=== PATIENT | male | born 1955 | race Caucasian/White ===

== ENCOUNTER 2016-08-30 12:07 | Inpatient (IN) | payer MEDICAID, OTHER ==
[2016-08-30] VITALS (17 sets, daily range): BP systolic 96–128; BP diastolic 69–93; PULSE 96–164; RESP 15–26; O2SAT 93–97
[~2016-08-30] VITALS: Ht 180.3 cm; Wt 86.0 kg
--- NOTE | 2016-08-30 12:37 | ED.REPORT ---
HPI-Chest Pain 40 and Over Date of Service Aug 30, 2016 ED Provider: Raj Meneses MD Pt is a 61 year old male presenting to the ED from complaining of 3 or 4 days of SOB. Pt states that he has not been feeling well for the past few days. Denies chest pain, lightheadedness, diaphoresis, shakiness. EKG at today shows a-fib with RVR. Pt reports that he stopped drinking EtOH 2 weeks ago, but usually drinks 5 beers per day. He states that he stopped because he was not feeling good. Pt has been mostly laying down for the past week. Denies hx of bleeding, ulcers, HTN, liver disease. Nursing Notes Stated Complaint: SOB Chief Complaint: SOB Nursing Notes Reviewed: Yes Allergies: Coded Allergies: No Known Allergies (Unverified , 08/30/16) No Active Prescriptions or Reported Meds General Time Seen by MD: 12:36 Chief Complaint Shortness of breath Hx Obtained From: Patient, Spouse Arrived By: Walk-in Sudden in Onset?: No Onset Occurred: 3 days ago Symptom Duration: Since onset Severity: Current: No pain currently Severity: Maximum: No pain Recent Healthcare: No recent doctor visit, No recent hospitalization Similar Sx Previous: No Past Medical History Past Medical History denies hx of HTN, liver problems or jaundice Pt has not been to see a doctor since he was 20 Past Surgical History denies Smoking History Unknown if Ever Smoker Social History Just quit drinking 2 weeks ago Alcohol Use: In recovery Ambulatory Status Independent Review of Systems Constitutional: Reports: Malaise, Denies: Fever Respiratory: Reports: Shortness of breath Cardiovascular: Denies: Chest pain Skin: Denies Diaphoresis Neurologic: Denies: Lightheaded, Shaking Complete sys rev & neg: except as marked. Physical Exam Initial Vital Signs Vital Signs (First) Date Time Temp Pulse Resp B/P Pulse Ox O2 Delivery O2 Flow Rate FiO2 08/30/16 12:24 164 15 128/69 Room Air 08/30/16 13:28 36.6 08/30/16 14:24 4 08/30/16 15:05 93 Initial VS: Reviewed Head / Eyes: Atraumatic, Normocephalic, PERRL ENT: Mucous membranes moist, Conjunctiva normal, No scleral icterus Neck: Supple, Non-tender, Full range of motion Skin: Warm, Dry, No cyanosis Neurologic: Alert, Oriented, Nonfocal Psychiatric: Mood/affect normal, Behavior normal, Normal thought content General/Constitutional: Awake, Alert No tremor Respiratory / Chest: Breath sounds NL, Breath sounds = bilat, No respiratory distress, No rales, No rhonchi, No wheezing, No stridor, No chest tenderness Cardiovascular: No gallop, No murmurs, No rubs Heart Rate / Rhythm: Positive: Irreg irregular rhythm, Tachycardia Abdomen: Atraumatic, No guarding, No rebound, BS normoactive, No distention Organomegaly / Mass / Hernia: Positive: Hepatomegaly, Negative: Pulsatile mass Telangiectasia anterior abdominal wall. Lower Extremity / Pelvis / MS: Full range of motion, Neurologic intact, Vascular intact Engorged vericose veins in both legs Skin: Color NL Neurologic: Oriented X3, Speech NL, No motor deficits Interpretation & Diagnostics Lab Results Interpretation Result Diagram: 08/30/16 1242 08/30/16 1242 Test 08/30/16 12:42 White Blood Count 10.0th/mm3 (3.8-10.1) Red Blood Count 5.39mil/mm3 (4.40-5.80) Hemoglobin 16.4g/dL (13.8-17.2) Hematocrit 48.6% (41.0-50.0) Mean Corpuscular Volume 90.2fL (81-100) Mean Corpuscular Hemoglobin 30.4pg (27.0-35.0) Mean Corpuscular Hemoglobin Concent 33.7% (32.0-37.0) Red Cell Distribution Width 14.2% (12.3-15.4) Platelet Count 86bil/L (150-400) Neutrophils (%) (Auto) 76.4% (40-74) Lymphocytes (%) (Auto) 9.8% (14-46) Monocytes (%) (Auto) 13.3% (4-12) Eosinophils (%) (Auto) 0.1% (0-5) Basophils (%) (Auto) 0.1% (0-3) Hematology Comments Prothrombin Time 18.7sec (8.1-12.5) Prothromb Time International Ratio 1.73ratio Activated Partial Thromboplast Time 33.2sec (22.8-33.0) D-Dimer 13.9mg/L (<0.50) Hold Urine Received (Received) Sodium Level 135mEq/L (134-144) Potassium Level 5.0mEq/L (3.5-5.2) Chloride Level 98mEq/L (97-108) Carbon Dioxide Level 16mmol/L (18-29) Blood Urea Nitrogen 71mg/dL (8-27) Creatinine 2.02mg/dL (0.76-1.27) Estimat Glomerular Filtration Rate 36mL/min (>59) Glucose Level 104mg/dL (60-99) Calcium Level 9.0mg/dL (8.5-10.1) Magnesium Level 2.5mg/dL (1.6-2.6) Total Bilirubin 2.1mg/dL (0.0-1.2) Aspartate Amino Transf (AST/SGOT) 482U/L (0-50) Alanine Aminotransferase (ALT/SGPT) 593U/L (0-44) Alkaline Phosphatase 165U/L (25-160) Troponin T 0.075ug/L (0.0-0.011) Total Protein 6.0g/dL (6.4-8.4) Albumin 3.4g/dL (3.4-5.0) Thyroid Stimulating Hormone (TSH) 4.100uIU/mL (0.450-4.500) Hold Queen Top Tube Received (Received) Alcohols < 10mg/dL (0-10) ECG Interpretation ECG Interpretation: Regular narrow complex tachycardia afib vs SVT? Rapid ventricular response. No acute ST segment changes. Time: 12:32 Interpreted by: ED physician X-Ray Chest Interpretation Chest Xray Interpretation: IMPRESSION: No acute cardiopulmonary disease. Dictated by: Saravanan Hahn M.D. on 08/30/2016 at 12:56 View: Portable, 1 view Interpretation / Wet Read by: Interpret - Radiologist CT Chest Interpretation IMPRESSION: 1. Bilateral nonocclusive subsegmental pulmonary emboli. 2. Small pleural effusions, cardiomegaly, and partially characterized hepatosplenic ascites. The findings suggest congestive failure and fluid overload. These findings were discussed with Dr. Meneses at 12:10 PM on 08/30/16. Dictated by: Lucia Gaviria M.D. on 08/30/2016 at 14:03 Study type: CT pulm angiogram Interpretation / Wet Read by: Interpret - Radiologist US Focused Biliary IMPRESSION: 1. Liver demonstrates nodular contour and coarse echotexture consistent with chronic liver disease and possible cirrhosis. Recommend clinical correlation. 2. No gallstones or evidence for acute cholecystitis. 3. Small amount of free fluid around liver, spleen, and wheezing the gallbladder fossa. This finding is likely related to liver disease. Dictated by: Esthela Lamas M.D. on 08/30/2016 at 16:06 Exam Performed by: Radiologist Re-Eval/Medical Decision Med Decision/Clinical Course Pt given Adenosine 6mg and then Cardizem 20 mg IV 5 mg per hour drip ordered. 61-year-old male presenting with atrial fibrillation rapid ventricular response. Not having chest pain, initially treated with IV Cardizem, had some improvement in her rate however he was still over persistently and frequently over 120. Cardizem drip was titrated up, we gave a small dose of digoxin intravenously after discussion with the medicine service. He had a markedly elevated d-dimer which was followed up with imaging demonstrating pulmonary embolism. He was noted to have renal failure and elevated AST ALT and bilirubin and alkaline phosphatase. Examination and history were not consistent with cholecystitis. Ultrasound was performed, no gallstones or CBD dialation. Heparin drip started and IV fluids given cautiously. Admit to hospitalist service. Time of Eval: 12:49 Patient Status: Condition improved Re-Evaluation/Progress Note: Pt given Adenosine 6mg and repeat EKG performed. Pt clearly in afib. Time of Eval: 13:20 Patient Status: Condition improved Re-Evaluation/Progress Note: Discussed lab results. Heart rate currently at 126. Pt states that he stopped drinking alcohol because he was feeling sick. He denies hx of liver disease or jaundice. Time of Eval: 14:13 Patient Status: Condition improved Re-Evaluation/Progress Note: Discussed CT results and plan for admission. Pt understands and agrees with plan. Consultation : Referral / Consult Name: Bobby Levi MD Consulted With: Hospitalist Call Returned at: 14:19 Truck Shop Mechanic: Will see patient, Agrees with plan, Accepts admit Counseled Regarding: Diagnosis, Lab results, Need for follow-up, When/why to return to ED Discharge & Departure Primary Impression: Pulmonary emboli Pulmonary embolism type: other Chronicity: acute Acute cor pulmonale presence: without acute cor pulmonale Qualified Code: I26.99 - Other pulmonary embolism without acute cor pulmonale Additional Impressions: Atrial fibrillation with RVR Acute renal failure Acute renal failure type: unspecified Qualified Code: N17.9 - Acute kidney failure, unspecified Elevated LFTs Disposition: ADMITTED TO HOSPITAL Discharge Condition All VS Reviewed: Yes Condition: Improved Crit Care Except Billable Proc Time Spent: 30-74 minutes Services Performed: Patient management by me, Time spent at bedside, Reviewing test results, Reviewing imaging, Discussing patient care, Documentation in record, Time with fam/surrogate Scribe Attestation Portions of this note were transcribed by Edith Salcido. I, Dr. Meneses personally performed the history, physical exam and medical decision-making; I reviewed and confirmed the accuracy of the information in the transcribed note. Signed by : Andi Pulido, 08/30/2016 at 1618. Raj Meneses MD Aug 30, 2016 12:37 EDITH SALCIDO Aug 30, 2016 12:44
[2016-08-30] MEDS ORDERED: Adenosine 3 mg/mL 2 mL Inj IVPUSH ONE (12:45)
[2016-08-30 12:50] LABS: BASOPHILS % (AUTO) 0.1 % (0-3); EOSINOPHILS % (AUTO) 0.1 % (0-5); MONOCYTES % (AUTO) 13.3 % (4-12); Mean Corpuscular Hemoglobin 30.4 pg (27.0-35.0); Mean Corpuscular Volume 90.2 fL (81-100); NEUTROPHILS % (AUTO) 76.4 % (40-74); Platelet Count 86 bil/L (150-400)
[2016-08-30] MEDS ORDERED: Diltiazem 5 mg/mL 5 mL Inj IVPUSH ONE (12:55)
--- NOTE | 2016-08-30 12:59 | DRSVH ---
PROCEDURE: X-RAY CHEST ONE VIEW, PORTABLE ([id number]) INDICATIONS: 61 year-old male with shortness of breath. TECHNIQUE: One view of the chest was acquired. COMPARISON: None. FINDINGS: Surgical changes and devices: None. Lungs and pleura: No pleural effusions or pneumothorax. Lungs are clear. Mediastinum: Mediastinal contours appear normal. Heart size is normal given AP technique. Bones and chest wall: No suspicious bony lesions. Overlying soft tissues appear unremarkable. IMPRESSION: No acute cardiopulmonary disease. Dictated by: Saravanan Hahn M.D. on 08/30/2016 at 12:56 Approved by: Saravanan Hahn M.D. on 08/30/2016 at 12:57
[2016-08-30] MEDS: Diltiazem Inj 125 MG in Dextrose 5% 100 ML IV SCH ×2 (13:20→22:23)
[2016-08-30] MEDS ORDERED: 0.9% Sodium Chloride 250 ML ONE (13:21)
[2016-08-30 13:25] LABS: Magnesium 2.5 mg/dL (1.6-2.6)
[2016-08-30 13:27] LABS: TROPONIN T 0.075 ug/L (0.0-0.011)
[2016-08-30] MEDS ORDERED: 0.9% Sodium Chloride 1,000 ML IV ONE (13:30)
--- NOTE | 2016-08-30 14:14 | DRSVH ---
PROCEDURE: CT ANGIO CHEST PULMONARY EMBOLISM ([id number]) INDICATIONS: elevated dimer, a-fib TECHNIQUE: After the administration of intravenous contrast, 2 mm thick sections acquired from the pulmonary api breana to the posterior costophrenic angles. 3-dimensional maximum intensity projection (MIP) coronal a nd sagittal reformats were then acquired through the thorax. For radiation dose reduction, the follo wing was used: automated exposure control, adjustment of mA and/or kV according to patient size. COMPARISON: None. FINDINGS: Image quality: Excellent. Pulmonary arteries: There are multiple subsegmental, nonocclusive filling defects bilaterally consist ent with subsegmental pulmonary emboli. No filling defects within the segmental, main and segmental p ulmonary arteries or the pulmonary trunk. Lungs and pleura: There are small low density bilateral pleural effusions. Compressive atelectasis is present in the dependent lung bases bilaterally. Mediastinum: Heart size is enlarged. No pericardial effusion. No leftward septal bowing to suggest r ight cardiac straining. No mediastinal or hilar adenopathy. Thoracic aorta is normal in caliber and enhancement. Esophagus is normal in caliber, without hiatal hernia. Bones and chest wall: No suspicious bony lesions. Ribs and thoracic spine appear intact throughout. Thyroid gland is unremarkable. No axillary or supraclavicular adenopathy. Abdomen: There is a small amount of low-density hepatosplenic free fluid which is incompletely charac terized on this limited view of the abdomen. IMPRESSION: 1. Bilateral nonocclusive subsegmental pulmonary emboli. 2. Small pleural effusions, cardiomegaly, and partially characterized hepatosplenic ascites. The find ings suggest congestive failure and fluid overload. These findings were discussed with Dr. Meneses at 12:10 PM on 08/30/16. Dictated by: Lucia Gaviria M.D. on 08/30/2016 at 14:03 Approved by: Lucia Gaviria M.D. on 08/30/2016 at 14:13
[2016-08-30] MEDS ORDERED: Heparin 25K Unit/500mL 0.45 NS 25,000 UNIT in IV Premix 1 EACH IV SCH (14:15)
[2016-08-30] MEDS ORDERED: Heparin 5,000 Unit/mL Inj IVPUSH ONE (14:15)
[2016-08-30] MEDS ORDERED: Heparin 5,000 Unit/mL Inj IVPUSH PRN (14:15)
[2016-08-30 14:34] LABS: INR 1.73 ratio
[2016-08-30] MEDS: 0.9% Sodium Chloride 1,000 ML IV SCH (14:39)
[2016-08-30] MEDS ORDERED: Polyethylene Glycol (PEG) 17 Gm Powder PO PRN (14:40)
[2016-08-30] MEDS ORDERED: Alum-Mag Hydrox-Simeth 30 mL Suspension PO PRN ×2 (14:40)
[2016-08-30] MEDS ORDERED: Ondansetron 2 mg/mL 2 mL Inj IVPUSH PRN ×2 (14:40)
[2016-08-30] MEDS ORDERED: Digoxin 0.25 mg/mL 2 mL Inj IV ONE (15:45)
--- NOTE | 2016-08-30 16:11 | DRSVH ---
PROCEDURE: US ABDOMEN ([id number]) INDICATIONS: hepatomegaly, elevated LFTs, renal failure TECHNIQUE: Real-time scanning was performed of the abdominal and retroperitoneal organs, with image documentatio n. COMPARISON: [facility], CT, CT ANGIO CHEST PE, 08/30/2016, 13:42. FINDINGS: Liver: Liver is normal in size and demonstrates nodular contour and coarse echotexture. Gallbladder: Semicontracted gallbladder. No gallstones, gallbladder wall thickening or sonographic Mu rphy sign. There is a small amount of pericholecystic fluid. Biliary ducts: Intrahepatic bile ducts are non-dilated. Extrahepatic bile duct caliber measures 5.3 mm. Normal is 6-7 mm or less in diameter, or 10 mm or less post-cholecystectomy. Pancreas: Visualized portions of the pancreas are sonographically normal. Spleen: Spleen is normal in size and homogeneous in echotexture. Kidneys: Kidneys are normal in size and echotexture. Right kidney measures 10.8 cm long; left kidne y measures 11.4 cm long. No hydronephrosis or nephrolithiasis. No solid masses. Aorta: Visualized aorta is normal in caliber at less than 3 cm. Iliacs: Proximal common iliac arteries are normal in caliber at less than 2.5 cm. IVC: Intrahepatic inferior vena cava is patent. Miscellaneous: There is free abdominal fluid around liver, spleen, and within the gallbladder fossa. IMPRESSION: 1. Liver demonstrates nodular contour and coarse echotexture consistent with chronic liver disease an d possible cirrhosis. Recommend clinical correlation. 2. No gallstones or evidence for acute cholecystitis. 3. Small amount of free fluid around liver, spleen, and wheezing the gallbladder fossa. This finding is likely related to liver disease. Dictated by: Esthela Lamas M.D. on 08/30/2016 at 16:06 Approved by: Esthela Lamas M.D. on 08/30/2016 at 16:10
--- NOTE | 2016-08-30 18:37 | NUR ---
Admit A&O X3. Answers questions appropriately. Can we forgetful regarding keeping arm straight for IV access. [place]. No numbness or tingling in extremities but pt states fingers and toes can get very cold at times. HR irregular in the 100s. Tele A-fib. No c/o chest pain. Lungs clear bilaterally but decreased throughout. Tachypneic shallow breathing. Difficult to obtain an oxygen level. Pt on 5L O2 NC. Denies dyspnea or SOB. Abdomen is round, soft. Bowel tones hyperactive in all 4 quadrants. Appetite good, per patient. Last BM 08/29/16 per patient. Voiding normally into the urinal, per PROGRAM SUPPORT CLERK report. Groin folds are red bilaterally. No c/o pain. Pitting edema to bilateral lower legs and ankles. Posterior R calf swollen and lumpy. Radial pulses weak to palpation bilaterally. Pedal pulses weak to palpation bilaterally. IVs X2 on the L arm.
--- NOTE | 2016-08-30 18:48 | DRSVH ---
[facility] [address] [place] [address] Echocardiogram Report Name: JORGE NOLEN LStudy Date: Height: 71 in Hospital Exam Location: [facility] Weight: 189 lb Gender: Male BSA: 2.1 m2 : 1955 Age: 61 yrs BP: 105/79 mmHg Reason For Study: SOB Ordering Physician: Performed By: Patrica Baihca [facility] HOSPITALIST [facility] Interpretation Summary 1. Dilated left ventricle with normal wall thickness and globally reduced systolic function with an estimated EF of 15 to 20% 2. Dilated right ventricle with moderately reduced systolic function. The estimated right atrial pressure is elevated. 3. Severe tricuspid regurgitation. Severe mitral regurgitation. 4. 2x3 cm mobile mass seen at the base of the right atrium (clinical correlation recommended) There is no old study for comparison Procedure: A two-dimensional transthoracic echocardiogram with color flow and Doppler was performed. The study quality was technically good. There is no prior echocardiogram noted for this patient. The heart rate ranged between 114-145 bpm during the study. Left Ventricle: There is normal left ventricular wall thickness. The left ventricle is dilated at 6.4 cm. The ejection fraction is estimated to be 15- 20%. Diastolic function could not be accurately assessed due to tachycardia. Right Ventricle: The right ventricle is severely dilated. Right ventricular systolic function is moderately reduced. Atria: The left atrium is severely dilated. The right atrium is severely dilated. 2x3 cm mobile mass identified at the base of the right atrium - appears to extend into the IVC. The interatrial septum is intact with no evidence for an atrial septal defect. No color doppler evidence for an ASD. Mitral Valve: The mitral valve leaflets appear mildly thickened, but open well. There is severe mitral regurgitation. Aortic Valve: The aortic valve is trileaflet. The aortic valve opens well. There is mild aortic regurgitation. Tricuspid Valve: The tricuspid valve leaflets are thickened and/or calcified, but open well. There is severe tricuspid regurgitation. The right ventricular systolic pressure is estimated at 34 mmHg assuming a right atrial pressure of 15 mm Hg. Pulmonic Valve: The pulmonic valve is not well seen, but is grossly normal. There is moderate to severe pulmonic regurgitation. Great Vessels: The aortic root is severely dilated. The ascending aorta is dilated at 4.9 cm. The IVC is dilated (diameter is greater than 2.1 cm) and it collapses less than 50% with a sniff. This suggests a high right atrial pressure of 15 mm Hg. Pericardium/ Pleura There is no pericardial effusion. There is no pleural effusion. MMode/2D Measurements & Calculations LVIDd: 6.4 cm LA dimension: 5.2 cm RA long axis Ao root diam LVIDs: 5.1 cm FS: 19.4 % LA A2 area: 34.0 cm RA area Aortic Jxn: 4.1 cm IVSd: 1.1 cm LA A4 area: 33.9 cm asc Aorta Diam LVPWd: 0.84 cm LA length (vol) : 28.7 cm RA vol Ao Arch Diam (Prox LA vol: 149.0 ml : 109.ml Trans): 3.3 cm LA vol index RA : 52.9 mm/ RVDd major IVC diam: 2.5 cm : 5.4 cm LV holliday. diameter/BSA LV sys. diameter/BSA RVD1 (basal) (cm/m^2): 3.1 (cm/m^2): 2.5 Doppler Measurements & Calculations Ao V2 max MV P1/2t: 53.6 msec Med Peak E' Micah TR max micah : 77.5 cm/sec MR ERO: 0.37 cm2 : 216.4 cm/sec Ao max PG Lat Peak E' Micah TR max P.7 mmHg : 2.4 mmHg PA V2 max Ao mean PG : 41.4 cm/sec : 1.4 mmHg PA mean PG : 0.33 mmHg PA Accel Time : 0.07 sec MV V2 mean MV P1/2t max micah Ao V2 mean MR flow rate : 32.2 cm/sec : 56.4 cm/sec : 162.7 cm3/sec MV mean PG MVA(P1/2t): 4.1 cm2 Ao V2 VTI: 14.4 cm MR PISA radius : 0.64 mmHg MV V2 VTI : 11.6 cm PA V2 mean : 25.8 cm/sec Reading Physician:06:47 PM
--- NOTE | 2016-08-30 20:09 | PCM.HPMED ---
Subjective Date of Service Aug 30, 2016 Primary Provider: Admitting Physician: Bobby Levi MD Primary Care Physician: Nopcp Attending Physician: Bobby Levi MD Admit Status: From the Emergency Department, Full Admit, [facility] Telemetry Chief Complaint: Dyspnea, PE History of Present Illness: 61 year old male with several days of weakness and dyspnea. He is a chronic drinker and states he has about 5 beers a day. He stopped drinking about a week ago because he felt ill. He is very vague. He denies cough, fevers or chills. He has new leg swelling bilaterally No pleuritic CP or hemoptysis. In the ED he is found to have Bilateral PE and elevated LFT's. A stat ECHO reveals biventricular severe systolic heart failure and valve regurgitation. He denies a H/O ETOH withdrawals and has not had any problems like that since stopping drinking. He is also in AF with RVR refractory to a diltiazem drip after several diltiazem boluses. One dose of digoxin was given in the ED. He has not seen a doctor in years. He has not seen a doctor in years. He is generally very weak. He denies feveras of chills. No recent cough or rhinorrhea. He denies any history of racing heart, orthopnea, or leg edema. Review of Systems: Weak, poor appetite, wobbly. No nausea, vomiting, diarrhea, or seizures. No rectal blood. All else reviewed and negative except as noted in H and P. Allergies Coded Allergies: No Known Allergies (Unverified , 08/30/16) Home Medications None PMH 1. Alcoholism 2. Gout Surgical History Denies Family History Denies Social History Hx Alcohol Use: Yes Alcoholic Drinks Per Day: 5 Hx Substance Use: No Hx Tobacco Use: No Smoking Status: Unknown if Ever Smoker Living Arrangement: with Family Exam Vital Signs Vital Sign - Last Date Time Temp Pulse Resp B/P Pulse Ox O2 Delivery O2 Flow Rate FiO2 08/30/16 19:29 36.2 122 23 103/86 97 Nasal Cannula 5.00 Exam Unkempt No distress, slow speech. Tangential Normal skull, ears and nose. Icteric sclera, conjugate gaze. A little confuses=d and slow. Neck supple, normal thyroid, no adenopathy Lungs clear Heart 3/6 MS, irregular and fast. Abdomen soft, NT Bilateral mild leg edema and cords on left foot Multiple excoriations. Normal joints. Normal muscle strength. No pedal pulses and dusky feet with delayed cap refill Lab and Diagnostics Result Diagram: 08/30/16 1242 08/30/16 1242 X-Rays, CTs and MRIs CXR Nl Chest CT angio: bilat PE Abdomen US: cirrhosis and small ascites Cardiac Echo Impressions 1. Dilated left ventricle with normal wall thickness and globally reduced systolic function with an estimated EF of 15 to 20% 2. Dilated right ventricle with moderately reduced systolic function. The estimated right atrial pressure is elevated. 3. Severe tricuspid regurgitation. Severe mitral regurgitation. 4. 2x3 cm mobile mass seen at the base of the right atrium (clinical correlation recommended) Assessment & Plan 1. PE, POA. Heparin drip, duplex legs in AM. Oral anticoagulants. 2. AF + RVR, POA. Dilt frip and convert to PO meds as able. Add digoxin IV tonight. 3. Right ventricle thrombus, POA. As above. 4. Alcohol dependence, POA. Follow for evidence of withdrawal, CIWA if needed. 5. Acute renal failure, POA. Follow with rate control and IVF given slowly. 6. Chronic biventricular systolic heart failure, POA. Cards consult in next day. 7. Acute alcohol induced hepatitis, POA. Follow clinically. Avoid tylenol. 8. Poor pedal pulses, POA. Leg artery US in AM Full code. Inpatient status, more than 2 nights stay needed. Pain Evaluation: Adequate Pain Control VTE Mechanical Devices: Intermittant Pneumatic CD Resuscitation Status: CPR: Attempt Resuscitation Time spent 60 minutes Bobby Levi MD Aug 30, 2016 20:09
--- NOTE | 2016-08-30 21:05 | NUR ---
V-Tach: P: 13 beats of V-tach. I: Pt asymptomatic. Blood pressure 96/78. Pt returned to Afib. Dr. Levi notified at 2102. writing order to start pt. on po Metoprolol. E: Will cont. to closely monitor.
[2016-08-31] VITALS (12 sets, daily range): BP systolic 92–116; BP diastolic 66–95; PULSE 81–101; RESP 24–27; O2SAT 90–95
--- NOTE | 2016-08-31 | NUR ---
PTT Heparin: P: Critical PTT > 240 I: Heparin gtt turned off and PTT redrawn [address] Levi notified of critical PTT and following protocol. E: PTT came back at 100. Heparin gtt restarted and decreased by 2 units/kg/hour to 16 units/kg/hour. Next PTT ordered for 0540. Will cont to closely monitor.
--- NOTE | 2016-08-31 00:40 | NUR ---
Weaning of Diltiazem gtt P: Afib 70s-90s; Diltiazem gtt at 15 mg/hour I: Decreased diltiazem gtt to 10 mg/hour at approximately 0005. E: HR maintaining in the 70s to 90s. Decreased gtt to 5 mg/hour. Will cont. to maintain at this rate for now and cont. to monitor.
--- NOTE | 2016-08-31 03:30 | NUR ---
Disorientation: Pt had pulled off telemtry monitoring, oxygen and dc'd one PIV. Questioning whether this disorientation was r/t the ambien the pt received last night.
[2016-08-31] MEDS: 0.9% Sodium Chloride 1,000 ML IV SCH ×2 (04:06→14:23)
[2016-08-31 05:54] LABS: BASOPHILS % (AUTO) 0.1 % (0-3); EOSINOPHILS % (AUTO) 0.1 % (0-5); MONOCYTES % (AUTO) 12.9 % (4-12); Mean Corpuscular Hemoglobin 30.7 pg (27.0-35.0); NEUTROPHILS % (AUTO) 76.3 % (40-74); Platelet Count 91 bil/L (150-400)
[2016-08-31 06:43] LABS: TROPONIN T 0.074 ug/L (0.0-0.011)
--- NOTE | 2016-08-31 06:44 | NUR ---
PTT: P: PTT of 169.7 I: Heparin gtt stopped at 0640. Next PTT ordered to be drawn in one hour at 0740. E: Will cont. to monitor. Addendum: 08/31/16 at 0709 by JODIE DURON RN Kathrin team paged with result of PTT as well as troponin level of 0.074. Pt remains stable. No chest pain/bleeding.
--- NOTE | 2016-08-31 10:45 | DRSVH ---
PROCEDURE: US DUPLEX DOPPLER BILATERAL LEG ARTERIES ([id number]) INDICATIONS: edema TECHNIQUE: Color and pulse Doppler interrogation was performed of both lower extremity arterial systems, with im age documentation. COMPARISON: None. FINDINGS: Right lower extremity: Vascular Ultrasound Procedure Report Findings(Artery of Lower Extremity)(Right) Common Femoral Artery(Distal) Velocity: 43.40 cm/s Profunda Femoris Artery(Proximal) Velocity: 28.50 cm/s Superficial Femoral Artery(Proximal) Velocity: 50.90 cm/s Superficial Femoral Artery(Mid-longitudinal) Velocity: 76.80 cm/s Superficial Femoral Artery(Distal) Velocity: 71.30 cm/s Popliteal Artery(Mid-longitudinal) Velocity: 36.10 cm/s Posterior Tibial Artery(Distal) Velocity: 42.20 cm/s Dorsalis Pedis Artery(Distal) Velocity: 47.40 cm/s Greyscale findings: Mild scattered plaque. Left lower extremity: Vascular Ultrasound Procedure Report Findings(Artery of Lower Extremity)(Left) Common Femoral Artery(Distal) Velocity: 30.50 cm/s Profunda Femoris Artery(Proximal) Velocity: 39.80 cm/s Superficial Femoral Artery(Proximal) Velocity: 54.60 cm/s Superficial Femoral Artery(Mid-longitudinal) Velocity: 73.90 cm/s Superficial Femoral Artery(Distal) Velocity: 46.90 cm/s Popliteal Artery(Mid-longitudinal) Velocity: 31 cm/s Posterior Tibial Artery(Distal) Velocity: 32.60 cm/s Dorsalis Pedis Artery(Distal) Velocity: 37.20 cm/s Greyscale findings: Mild scattered plaque. IMPRESSION: 1. Mild scattered plaque; no hemodynamically significant peripheral arterial stenosis. 2. Cardiac arrhythmia throughout the exam. Dictated by: Duncan Cabrera [facility] Interpreted: Esthela Lamas MD on 08/31/2016 at 10:42 Transcribed by: JULI on 08/31/2016 at 10:45 Approved by: Esthela Lamas M.D. on 08/31/2016 at 12:30
--- NOTE | 2016-08-31 11:11 | DRSVH ---
PROCEDURE: US VENOUS LEG DUPLEX BILATERAL INDICATIONS: edema TECHNIQUE: Real-time imaging, as well as color and pulse Doppler interrogation, were performed of the deep veins of both legs from the inguinal ligament to the popliteal fossa. COMPARISON: None. FINDINGS: Right: The deep veins are normally compressible, and free of intraluminal thrombus. Color and pulse Doppler demonstrate normal phasic intravascular flow. There is normal augmentation response to dista l compression maneuver. There is dilation of the proximal right greater saphenous vein which is comp letely thrombosed with clot extending slightly into the lumen of the common femoral vein. The expand ed, thrombosed greater saphenous vein at the saphenofemoral junction measures 5.0 x 2.7 cm. Superfici al femoral phlebitis Thrombophlebitis is also present within the popliteal space behind the knee. Left: The deep veins are normally compressible, and free of intraluminal thrombus. Color and pulse D oppler demonstrate normal phasic intravascular flow. There is normal augmentation response to distal compression maneuver. Varicose veins noted in the left lower extremity. IMPRESSION: 1. Although no deep venous thrombosis is identified in the right lower extremity, there is extensive dilatation and thrombosis involving the greater saphenous vein with the thrombus extending slightly i nto the anterior lumen of the common femoral vein which otherwise is patent. 2. Superficial thrombophlebitis within the right popliteal fossa. 3. No deep venous thrombosis in the left lower extremity. Dr. Duncan Dhillon given results at 1110 hrs. 08/31/2016. Dictated by: Duncan Cabrera [facility] Interpreted: Esthela Lamas MD on 08/31/2016 at 10:35 Transcribed by: JULI on 08/31/2016 at 11:11 Approved by: Esthela Lamas M.D. on 08/31/2016 at 12:29
--- NOTE | 2016-08-31 17:34 | PCM.PNMED ---
Subjective Date of Service Aug 31, 2016 Subjective 61 year old male with alcoholism presents with several days of weakness and dyspnea found to have Bilateral PE, elevated LFT's and encephalopathy. Patient is alert. He states he feels "under the weather" but offers no specific symptoms. He is vague about alcohol use but alleges to have stopped several weeks ago. Exam Vital Signs Vital Sign - Last Date Time Temp Pulse Resp B/P Pulse Ox O2 Delivery O2 Flow Rate FiO2 08/31/16 13:52 36.0 94 94/75 95 Nasal Cannula 2.00 08/31/16 09:22 26 Intake and Output 08/30/16 08/30/16 08/31/16 Cumulative From/Thru 14:59 22:59 06:59 08/30/16 12:11 - 08/31/16 06:46 Intake Total 711 ml 1519 ml 2230 ml Output Total 775 ml 775 ml Balance 711 ml 744 ml 1455 ml Intake Oral 350 ml 350 ml IV Total 361 ml 1519 ml 1880 ml Output Urine Total 775 ml 775 ml Exam General: Facial plethora no acute distress HEENT: sclerae anicteric, oral mucosa moist Neck: Audible upper airway noise Chest: clear to auscultation Cardiac: S1S2, no murmur Abdomen: BS normal, non-tender, no flank dullness Extremities: Purple toes right greater than left. Nonpalpable pedal pulses. Capillary refill in other areas of foot is okay. Extremity is not extremely cool. Neuro: A&O, cranial nerves symmetric, motor strength 5/5, no asterixis IVs and Medications Medications Reviewed: Medications were reviewed in detail Lab and Diagnostics Result Diagram: 08/31/16 0550 08/31/16 0550 X-Rays, CTs and MRIs PROCEDURE: CT ANGIO CHEST PULMONARY EMBOLISM ([id number]) IMPRESSION: 1. Bilateral nonocclusive subsegmental pulmonary emboli. 2. Small pleural effusions, cardiomegaly, and partially characterized hepatosplenic ascites. The findings suggest congestive failure and fluid overload. These findings were discussed with Dr. Meneses at 12:10 PM on 08/30/16. PROCEDURE: US VENOUS LEG DUPLEX BILATERAL IMPRESSION: 1. Although no deep venous thrombosis is identified in the right lower extremity , there is extensive dilatation and thrombosis involving the greater saphenous vein with the thrombus extending slightly into the anterior lumen of the common femoral vein which otherwise is patent. 2. Superficial thrombophlebitis within the right popliteal fossa. 3. No deep venous thrombosis in the left lower extremity. PROCEDURE: US ABDOMEN ([id number]) IMPRESSION: 1. Liver demonstrates nodular contour and coarse echotexture consistent with chronic liver disease and possible cirrhosis. Recommend clinical correlation. 2. No gallstones or evidence for acute cholecystitis. 3. Small amount of free fluid around liver, spleen, and wheezing the gallbladder fossa. This finding is likely related to liver disease. Dictated by: Esthela Lamas M.D. on 08/30/2016 at 16:06 PROCEDURE: US DUPLEX DOPPLER BILATERAL LEG ARTERIES ([id number]) IMPRESSION: 1. Mild scattered plaque; no hemodynamically significant peripheral arterial stenosis. 2. Cardiac arrhythmia throughout the exam. Dictated by: Duncan Cabrera [facility] Interpreted: Esthela Lamas MD on 08/31/2016 at 10:42 . Cardiac Echo Impressions Echocardiogram Report Name: JORGE NOLEN Study Date: Interpretation Summary 1. Dilated left ventricle with normal wall thickness and globally reduced systolic function with an estimated EF of 15 to 20% 2. Dilated right ventricle with moderately reduced systolic function. The estimated right atrial pressure is elevated. 3. Severe tricuspid regurgitation. Severe mitral regurgitation. 4. 2x3 cm mobile mass seen at the base of the right atrium (clinical correlation recommended) . Assessment & Plan #. Multiple thromboemboli., POA. Bilateral pulmonary embolism. Atrial thrombus. Superficial leg vein thrombosis - Heparin drip, - Transition to Oral anticoaglants. #. Atrial fibrillation with rapid ventricular response. - IV diltiazem for rate control - Initiate oral beta summer - Cardiology consult #. Encephalopathy, acute. Patient is normally able to work full-time. Current impairment seems likely related to alcohol, uremia, hepatic encephalopathy, possibly cerebral embolic disease. - Monitor for alcohol withdrawal - Monitor electrolytes, oxygenation and cardiac function - MRI brain when clinically stable #. Alcohol dependence, POA. - Follow for evidence of withdrawal, CIWA if needed. #. Acute renal failure, POA. Current GFR is stage III CKD. Abdominal ultrasound reveals normal kidneys with no nephrolithiasis. - Continue IV and oral fluids - Urine electrolytes #. Acute biventricular systolic heart failure, POA. Etiology is unclear. Likely alcoholic cardiomyopathy. No severe acute right heart strain. - Initiate beta summer, lisinopril, spironolactone when patient is clinically stable - CHF education when encephalopathy clears #. Acute alcohol induced hepatitis, POA. Possibly cirrhosis. No significant ascites, hence doubt SBP. - Follow clinically - Repeat CMP #. Poor pedal pulses, POA. Leg artery US in AM. Possible small vessel thromboembolic disease - Continue anticoagulation #. Elevated troponin - Flat profile does not suggest acute coronary syndrome Full code. Anticipate several days of inpatient care GI Prophylaxis: Not indicated VTE Prophylaxis: Sub-Q Heparin (Unfractionated), Other VTE Mechanical Devices: Intermittant Pneumatic CD Resuscitation Status: CPR: Attempt Resuscitation Time spent 45 minutes Jonathon Dhillon MD Aug 31, 2016 17:33
[2016-08-31] MEDS ORDERED: Thiamine Inj 100 MG, Folic Acid Inj 1 MG, Magnesium Sulfate 50% Inj 2 GM, Multivitamins... IV ONE ×5 (17:45)
--- NOTE | 2016-08-31 19:22 | NUR ---
Cardizem/bladder scan Cardizem drip stopped at 1300. Rate well controlled between 80s- mid 90s with the exception of the nguyen insertion where HR increased to 125. No void by mid afternoon. Bladder scan showed 715mls in bladder. notified. Wrote order to insert nguyen. 900cc dark michelle urine out.
[2016-08-31] MEDS: Nystatin 100,000 Unit/Gm 15 Gm Powder TOPICAL SCH (21:13)
[2016-09-01] VITALS (11 sets, daily range): BP systolic 89–120; BP diastolic 48–80; PULSE 80–140; RESP 18–24; O2SAT 92–96
[2016-09-01 03:49] LABS: BASOPHILS % (AUTO) 0.1 % (0-3); EOSINOPHILS % (AUTO) 0.5 % (0-5); MONOCYTES % (AUTO) 13.8 % (4-12); Mean Corpuscular Hemoglobin 30.5 pg (27.0-35.0); Mean Corpuscular Volume 92.1 fL (81-100); NEUTROPHILS % (AUTO) 77.1 % (40-74); Platelet Count 112 bil/L (150-400)
[2016-09-01 04:11] LABS: Magnesium 2.6 mg/dL (1.6-2.6)
[2016-09-01 06:05] LABS: APPEARANCE,URINE HAZY (CLEAR,HAZY); COLOR,URINE YELLOW (YELLOW); OCCULT BLOOD,URINE LARGE (NEGATIVE); PH,URINE 5.5 (5.0-8.0)
[2016-09-01 06:06] LABS: UROBILINOGEN,URINE NORMAL (NORMAL)
--- NOTE | 2016-09-01 06:27 | NUR ---
Mentation/Heparin gtt pt forgetful and very somnolent, wakes easy but unable to stay awake for any amount of time. PTT in goal x2, next PTT draw in AM. Pt did not exhibit any s/s of ETOH withdrawal.
[2016-09-01] MEDS: Nystatin 100,000 Unit/Gm 15 Gm Powder TOPICAL SCH ×2 (10:01→19:42)
--- NOTE | 2016-09-01 11:11 | DRSVH ---
PROCEDURE: MRI BRAIN WITHOUT CONTRAST ([id number]) INDICATIONS: 61 year-old male with bilateral pulmonary embolism and atrial fibrillation presenting fo r evaluation of possible embolic infarcts. TECHNIQUE: Noncontrast axial T1 spin echo, axial T2 fast spin echo, sagittal and axial FLAIR, coronal T2 fast sp in echo, axial gradient echo, axial diffusion and ADC through the brain. COMPARISON: None. FINDINGS: Image quality: Excellent. CSF Spaces: Basal cisterns are patent. No extra-axial fluid collections. There is mild cerebral vo lume loss with prominence of the ventricles and sulci. Brain: There are small bilateral foci of cortical restricted diffusion involving the right frontal a nd bilateral temporal lobes as well as possibly a focus of restricted diffusion in the right cerebell ar hemisphere. These demonstrate associated mild T2 hyperintensity. Findings are compatible with la te acute or subacute infarcts. No intracranial hemorrhage, mass, or mass effect. There are bilatera l foci of subcortical and white matter T2 hyperintensity consistent with mild to moderate chronic sma ll vessel ischemic changes. These include foci within the brainstem. Normal intravascular flow void s are present. Skull and face: Calvarium has normal marrow signal. Orbits appear normal. Sinuses: There is mild mucosal thickening within the ethmoid and maxillary sinuses. Mastoid air cell s are clear. IMPRESSION: 1. Bilateral foci of restricted diffusion consistent with small infarcts in the right frontal and bi lateral temporal lobes as well as possibly be in the right cerebellar hemisphere. Given the distribu tion and patient's clinical history, findings are compatible with small embolic infarcts. No evidenc e of associated hemorrhage. 2. Mild to moderate chronic white matter small vessel ischemic changes and mild cerebral volume loss . Dictated by: Michael Wing M.D. on 09/01/2016 at 11:00 Approved by: Michael Wing M.D. on 09/01/2016 at 11:10
[2016-09-01] MEDS: 0.9% Sodium Chloride 1,000 ML IV SCH ×4 (13:08→23:31)
--- NOTE | 2016-09-01 13:56 | CONS ---
[address] [address] CONSULTATION REPORT PATIENT: JORGE NOLEN : 1955 MR#: [id number] ADMIT: 08/30/2016 JOB ID: [id number] DATE OF SERVICE: 09/01/2016 REQUESTED BY: Jonathon Dhillon MD. REASON FOR EVALUATION: Cardiomyopathy. HISTORY: The patient is a 61 years old male who has been healthy all his life. He has not seen any physician for a long time. He admitted to being a heavy drinker. He stated he probably drinks too much. He noticed that he had bilateral leg swelling for the past three weeks. He had trouble breathing on exertion for the past 1-1/2 weeks to 2 weeks. He denies any chest discomfort, orthopnea, or PND. He denies any pain in his legs. 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 He denies any recent trip. PAST MEDICAL HISTORY: None. PAST SURGICAL HISTORY: None. HOME MEDICATIONS: None. ALLERGIES: No known allergies. SOCIAL HISTORY: The patient was born in this hospital. He grew up in [place]. He lives in [facility] with his . He has never smoked. He drinks 4-5 beers every day for 30-40 years. He denies any drugs. FAMILY HISTORY: His father at age 82 from Parkinson disease. His mother from colon cancer. 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 His body weight has remained the same since high school. He lost his appetite for a few weeks but getting better. PHYSICAL EXAMINATION: Reveals a middle-aged male who appears older than his stated age. Temperature is 36.7. Blood pressure is 120/78. Pulse is 80. Body weight is 95.3 kg. Head and face have normal configuration. Anicteric sclerae. Moist mucosa. Neck supple. No jugular venous distention. No carotid bruits. Chest: Normal expansion. Lungs are clear to auscultation. Heart: The first and second heart sounds normal. S3 is present. There is no murmur. Abdomen is soft. Bowel sounds diminished. Extremities: 3+ bilateral edema. No clubbing or cyanosis. Neurology: Awake and oriented. No gross motor or sensory deficit. EKG from August 30, 2016, showed atrial fibrillation, rate 172 per minute. Diffuse low voltage. LABORATORY TESTS: Show hemoglobin 14.6, WBC 11.0, platelets 111. Sodium 138, potassium 4.9, chloride 106, bicarb 17, BUN 54, creatinine 1.35. Total bilirubin 1.5, AST 234, ALT 441. Troponin 0.074. Albumin 2.9. TSH 4.1. IMAGING: MRI of the head showed bilateral foci of restricted diffusion consistent with a small infarct of the right frontal and bilateral temporal lobes, as well as possibly be in the right cerebellar hemisphere. Mild to moderate chronic white matter small vessel ischemic changes and mild cerebral volume loss. Venous ultrasound showed no deep venous thrombosis of both lower extremities. There is extensive dilation and thrombosis involving the right greater saphenous vein, slightly extending into the anterior lumen of the right common femoral vein. Superficial thrombophlebitis within the right popliteal fossa. CT scan of the chest showed bilateral nonocclusive subsegmental pulmonary emboli. Echocardiogram on August 30, 2016, showed dilated left ventricle with ejection fraction 15% to 20%. Dilated right ventricle with moderately reduced systolic function. Severe tricuspid regurgitation. Severe mitral regurgitation. A 2 x 3 cm mobile mass seen in the base of the right atrium. IMPRESSION: 1. 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 2. Atrial fibrillation of unknown duration, with uncontrolled ventricular response. 3. Bilateral nonocclusive subsegmental pulmonary emboli. 4. 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 5. Severe mitral and tricuspid regurgitation. PLAN: I strongly advised the patient to stop drinking. I will give him thiamine for possible alcoholic cardiomyopathy. I would like to control the atrial fibrillation rate with a combination of beta summer and digoxin. I personally reviewed his echocardiogram. I believe that the mobile mass in the right atrium is thrombus. It is likely that the patient initially developed a deep venous thrombosis of the right common femoral vein and then dislodged and went to his lungs. [facility]
[2016-09-01] MEDS ORDERED: Heparin 25K Unit/500mL 0.45 NS 25,000 UNIT in IV Premix 1 EACH IV SCH (14:00)
--- NOTE | 2016-09-01 14:07 | NUR ---
Social Work: Initial Assessment D: Per EMR review, pt is a 61 year old male admitted for pulmonary embolism, AFIB with RVR. Pt is self-pay insurance. Pt has no PCP. NOK is Vandana Stevens, , . Advanced directives information declined from [employer], pt has previously stated to bedside RN that he has completed a living will- Family advised to provide copy for chart. Readmit score is low, 2/8. [employer] met with pt at bedside. Sw role explained and contact information. See initial assessment. Pt lives with his spouse in [place]. Pt states he is I with ADLs at baseline and continues to drive. Pt does not use DME. Pt has never had HH or skilled rehab. Pt states he drinks 2-3 beers daily, lower than what he initially reported during admission. Pt states he has never experienced any ETOH related withdrawal and declined CD resources from [employer]. Pt currently not on CIWA. Pt states his will provided transportation home. [employer] discussed pt's self-pay status and inquired if pt has any form of insurance. Pt states that he does not and has never had Medicaid. Pt does not want [facility] to assist him in applying for state insurance. [employer] [facility]. [employer] also discussed pt's lack of PCP. Pt does not appear to be concerned by his lack of insurance or MD follow up. Pt declined to have [employer] [facility] an [facility]. A: Pt who is I at baseline. P: Anticipate pt to discharge home via POV once medically stable; [employer] to continue to follow and assist with discharge planning DELLA Lin Addendum: 09/01/16 at 1416 by MARIOLA VAZQUEZ Amended: Links added.
--- NOTE | 2016-09-01 17:04 | PCM.PNMED ---
Subjective Date of Service Sep 01, 2016 Subjective 61 year old male with alcoholism presents with several days of weakness and dyspnea found to have atrial fibrillation with rapid ventricular response, bilateral PE, acute systolic CHF, elevated LFT's and encephalopathy. The patient appears much more alert today. Says he feels generally better. If reports his mental status to be close to baseline. He denies focal neurologic deficits. His feet were cold yesterday but he states they feel murmur today. Exam Vital Signs Vital Sign - Last Date Time Temp Pulse Resp B/P Pulse Ox O2 Delivery O2 Flow Rate FiO2 09/01/16 16:03 36.2 130 22 120/77 93 Room Air 09/01/16 04:20 2.00 Intake and Output 08/31/16 08/31/16 09/01/16 Cumulative From/Thru 15:00 23:00 07:00 08/30/16 12:11 - 09/01/16 06:47 Intake Total 800 ml 1551 ml 2937 ml 7518 ml Output Total 775 ml Balance 800 ml 1551 ml 2937 ml 6743 ml Intake Oral 800 ml 800 ml 1950 ml IV Total 1551 ml 2137 ml 5568 ml Output Urine Total 775 ml # Voids 4 4 # Bowel Movements 4 4 Exam General: Facial plethora, plus diaphoresis today, no acute distress HEENT: sclerae anicteric, oral mucosa moist Neck: Supple, difficult to assess JVD Chest: clear to auscultation Cardiac: S1S2, irregular, no murmur Abdomen: BS normal, non-tender, no flank dullness Extremities: Toes appear red slightly hyperemic with minimal residual purple discoloration. Nonpalpable pedal pulses. Capillary refill in other areas of foot is okay. Feet are warm. Neuro: A&O, cranial nerves symmetric, motor strength 5/5, no asterixis IVs and Medications Medications Reviewed: Medications were reviewed in detail Lab and Diagnostics Result Diagram: 09/01/1632909/01/16329 X-Rays, CTs and MRIs PROCEDURE: CT ANGIO CHEST PULMONARY EMBOLISM ([id number]) IMPRESSION: 1. Bilateral nonocclusive subsegmental pulmonary emboli. 2. Small pleural effusions, cardiomegaly, and partially characterized hepatosplenic ascites. The findings suggest congestive failure and fluid overload. These findings were discussed with Dr. Meneses at 12:10 PM on 08/30/16. PROCEDURE: US VENOUS LEG DUPLEX BILATERAL IMPRESSION: 1. Although no deep venous thrombosis is identified in the right lower extremity , there is extensive dilatation and thrombosis involving the greater saphenous vein with the thrombus extending slightly into the anterior lumen of the common femoral vein which otherwise is patent. 2. Superficial thrombophlebitis within the right popliteal fossa. 3. No deep venous thrombosis in the left lower extremity. PROCEDURE: US ABDOMEN ([id number]) IMPRESSION: 1. Liver demonstrates nodular contour and coarse echotexture consistent with chronic liver disease and possible cirrhosis. Recommend clinical correlation. 2. No gallstones or evidence for acute cholecystitis. 3. Small amount of free fluid around liver, spleen, and wheezing the gallbladder fossa. This finding is likely related to liver disease. Dictated by: Esthela Lamas M.D. on 08/30/2016 at 16:06 PROCEDURE: US DUPLEX DOPPLER BILATERAL LEG ARTERIES ([id number]) IMPRESSION: 1. Mild scattered plaque; no hemodynamically significant peripheral arterial stenosis. 2. Cardiac arrhythmia throughout the exam. Dictated by: Duncan Cabrera [facility] Interpreted: Esthela Lamas MD on 08/31/2016 at 10:42 PROCEDURE: MRI BRAIN WITHOUT CONTRAST ([id number]) IMPRESSION: 1. Bilateral foci of restricted diffusion consistent with small infarcts in the right frontal and bilateral temporal lobes as well as possibly be in the right cerebellar hemisphere. Given the distribution and patient's clinical history, findings are compatible with small embolic infarcts. No evidence of associated hemorrhage. 2. Mild to moderate chronic white matter small vessel ischemic changes and mild cerebral volume loss. Dictated by: Michael Wing M.D. on 09/01/2016 at 11:00 . Cardiac Echo Impressions Echocardiogram Report Name: JORGE NOLEN Study Date: Interpretation Summary 1. Dilated left ventricle with normal wall thickness and globally reduced systolic function with an estimated EF of 15 to 20% 2. Dilated right ventricle with moderately reduced systolic function. The estimated right atrial pressure is elevated. 3. Severe tricuspid regurgitation. Severe mitral regurgitation. 4. 2x3 cm mobile mass seen at the base of the right atrium (clinical correlation recommended) . Assessment & Plan #. Multiple thromboemboli., POA. Thromboembolic CVA. Bilateral pulmonary embolism. Right Atrial thrombus. Superficial leg vein thrombosis - Heparin drip discontinued, initiate therapeutic Lovenox - Initiate warfarin. #. Atrial fibrillation with rapid ventricular response. - IV diltiazem for rate control discontinued and transitioned to Toprol - Titrate metoprolol 4 times a day beta summer, then switch to titrate - Digoxin load today then 0.25 mg daily - Cardiology consult - Continue telemetry #. Acute biventricular systolic heart failure, POA. Etiology is unclear. Likely alcoholic cardiomyopathy. No severe acute right heart strain. The patient has been counseled on need for alcohol cessation. - Initiate lisinopril, spironolactone when patient is clinically stable - Thiamine - Cardiology consult - CHF education when encephalopathy clears #. Encephalopathy, acute. Patient is normally able to work full-time. Current impairment seems likely related to alcohol, uremia, cerebral embolic disease. - Monitor for alcohol withdrawal - Monitor electrolytes, oxygenation and cardiac function - Continue therapeutic anticoagulation as embolic are small, low risk of bleeding #. Alcohol dependence, POA. - Follow for evidence of withdrawal, CIWA if needed. #. Acute renal failure, POA. Serum creatinine on admission 2.02. Fractional excretion 0.24% is consistent with CHF and cardiorenal syndrome. Abdominal ultrasound reveals normal kidneys with no nephrolithiasis. - Repeat urinalysis - Continue IV and oral fluids - Urine electrolytes #. Acute alcohol induced hepatitis, POA. Possibly cirrhosis. No significant ascites, hence doubt SBP. - Follow clinically - Repeat CMP #. Poor pedal pulses, POA. Leg artery US in AM. Possible small vessel thromboembolic disease - Continue anticoagulation #. Elevated troponin - Flat profile does not suggest acute coronary syndrome Full code. Anticipate several days of inpatient care GI Prophylaxis: Not indicated VTE Prophylaxis: Sub-Q Heparin (Unfractionated), Other VTE Mechanical Devices: Intermittant Pneumatic CD Resuscitation Status: CPR: Attempt Resuscitation Time spent 40 minutes Jonathon Dhillon MD Sep 01, 2016 17:04
--- NOTE | 2016-09-01 17:16 | NUR ---
Mentation/HR Pt. is somnolent this morning but throughout shift Pt. is easier to wake up and he answers questions appropriately. Pt. is forgetful at times and is noted to be unsteady on his feet when he gets up. Pt. is reminded to use the call light for assistance when needed. Pt. has not exhibited any signs or symptoms of ETOH withdrawal. Pts. HR has been increasing throughout the shift and was made aware. At this time Pts. HR is now in the 130-140s, asymptomatic.
[2016-09-01 18:17] LABS: INR 1.24 ratio
[2016-09-02] VITALS (7 sets, daily range): BP systolic 94–119; BP diastolic 54–86; PULSE 44–139; RESP 18–22; O2SAT 93–97
[2016-09-02 04:16] LABS: Magnesium 2.3 mg/dL (1.6-2.6)
[2016-09-02 04:31] LABS: INR 1.23 ratio
--- NOTE | 2016-09-02 05:26 | NUR ---
oxygen Pt low 90's on RA, placed on 2L. Pt takes off multiple times during the night, ultimately refusing to replace NC. Pt educated on oxygen needs, states understanding.
[2016-09-02] MEDS: Nystatin 100,000 Unit/Gm 15 Gm Powder TOPICAL SCH ×2 (09:33→20:57)
[2016-09-02] MEDS: 0.9% Sodium Chloride 1,000 ML IV SCH (09:35)
--- NOTE | 2016-09-02 14:11 | PROG NOTE ---
[address] [address] PROGRESS NOTE PATIENT: JORGE NOLEN : 1955 MR#: [id number] ADMIT: 08/30/2016 JOB ID: [id number] DATE: 09/02/2016 CHIEF COMPLAINT: Following up with the hospital service given findings of cardiomyopathy as well as pulmonary embolism. Briefly, this is a 61-year-old man with several days of weakness and dyspnea, as well as new leg swelling. In the ED, he was found to have bilateral pulmonary embolism, as well as elevated LFTs. Echocardiogram has revealed biventricular heart failure, as well as valvular disease. He is also in atrial fibrillation with rapid ventricular response. Since he has been admitted, he has been put on anticoagulation. He has also been placed on metoprolol and digoxin with improvement of his heart rate. He has been anticoagulated with enoxaparin. He has also been put on diltiazem which I am not sure if he is on at this time. He is being treated for alcohol withdrawal as well. He says he feels better than he did when he came in. He still has some leg swelling but he is able to lie flat in bed and his sats are doing fine. PHYSICAL EXAMINATION: Blood pressure 109/80, heart rate 70. He is afebrile. Sats are 96% on room air. General: In no acute distress. Speaking in full sentences without apparent shortness of breath. Head and neck exam: Normocephalic, atraumatic. Neck: JV distention appreciated. Heart exam irregular without obvious murmurs, gallops, rubs appreciated. Lungs sound clear anteriorly. Abdomen soft, nontender. Extremities with edema to at least the mid calf, 1 to 2+ distal pulses appreciated. Skin without minor excoriations but no severe breakdown appreciated. Neuro: Alert and interactive. Gait not tested. Psych: Appropriate mood and affect. LABORATORY AND DIAGNOSTIC STUDIES: EKG shows atrial fibrillation with rapid ventricular response. This is now improved. ENT: Mucous membranes moist. No erythema. Ophtho. Vision grossly intact. CURRENT MEDICATIONS: Include: 1. Digoxin 0.25 daily. 2. Metoprolol 50 mg q.i.d. 3. Thiamin. 4. Enoxaparin 100 mg q.12. 5. Other p.r.n. medications. 6. He also has been placed on warfarin which is being dosed daily. LABORATORIES: Show a white count 11. H and H 14.6 and 44.1, platelets 112,000. It actually increased from his initial numbers. Chemistry shows sodium 135, potassium 4.5, chloride and bicarb 106 and 16, respectively. BUN and creatinine 40 and 1.12, improved. LFTs have improved as well. IMAGING: Shows a brain MRI which shows probable small infarction in the right central and basal temporal lobes. A CT angio shows pulmonary embolism. Venous duplex does show any DVT, although there is superficial thrombosis in the great saphenous vein extending up to the common femoral vein which is where it becomes deep. Echo as noted. IMPRESSION: The patient seems to be doing better with medical treatment. His heart rate is better controlled. His cardiomyopathy may be related to an alcoholic cause versus an alcoholic plus tachycardia mediated. PLAN: 1. I would continue with metoprolol. That would be my primary choice of medications at this time to control his heart rate. 2. Continue with anticoagulation given pulmonary embolism. Fortunately, there is no evidence for hemorrhagic infarct on his CT of the brain. 3. Eventually, we will think about adding medications such as DEBBIE inhibitor. However, again I think it is most important this time to control his heart rates. 30 minutes was spent reviewing the patient's records, speaking with him and examining him, reviewing telemetry and communicating with the hospitalist team [place]
--- NOTE | 2016-09-02 15:31 | PCM.PNMED ---
Subjective Date of Service Sep 02, 2016 Subjective 61 year old male with alcoholism presents with several days of weakness and dyspnea found to have atrial fibrillation with rapid ventricular response, bilateral PE, acute systolic CHF, elevated LFT's, thromboembolic CVA and encephalopathy. The patient appears much more alert today, but sluggish in response to questions. Says he feels generally better. He denies focal neurologic deficits. He endorses pain in his right leg in the area of superficial thrombophlebitis Exam Vital Signs Vital Sign - Last Date Time Temp Pulse Resp B/P Pulse Ox O2 Delivery O2 Flow Rate FiO2 09/02/16 12:41 36.8 70 20 109/80 96 Room Air 09/01/16 19:46 2.00 Intake and Output 09/01/16 09/01/16 09/02/16 Cumulative From/Thru 15:00 23:00 07:00 08/30/16 12:11 - 09/02/16 05:43 Intake Total 2459 ml 1659 ml 04027 ml Output Total 500 ml 800 ml 2075 ml Balance 1959 ml 859 ml 9561 ml Intake Oral 1000 ml 300 ml 3250 ml IV Total 1459 ml 1359 ml 8386 ml Output Urine Total 500 ml 800 ml 2075 ml # Voids 4 # Bowel Movements 4 Exam General: Appears comfortable, no acute distress HEENT: sclerae anicteric, oral mucosa moist Neck: Supple, difficult to assess JVD Chest: clear to auscultation Cardiac: S1S2, irregular, no murmur Abdomen: BS normal, non-tender, no flank dullness Extremities: Toes slightly hyperemic. Capillary refill okay. Feet are warm. Neuro: A&O, cranial nerves symmetric, PERRLA, few beats of nystagmus that extinguished with gaze, motor strength 5/5, reflexes 3+ bilaterally, no asterixis IVs and Medications Medications Reviewed: Medications were reviewed in detail Lab and Diagnostics Result Diagram: 09/01/16 0330 09/02/16 0340 X-Rays, CTs and MRIs PROCEDURE: CT ANGIO CHEST PULMONARY EMBOLISM ([id number]) IMPRESSION: 1. Bilateral nonocclusive subsegmental pulmonary emboli. 2. Small pleural effusions, cardiomegaly, and partially characterized hepatosplenic ascites. The findings suggest congestive failure and fluid overload. These findings were discussed with Dr. Meneses at 12:10 PM on 08/30/16. PROCEDURE: US VENOUS LEG DUPLEX BILATERAL IMPRESSION: 1. Although no deep venous thrombosis is identified in the right lower extremity , there is extensive dilatation and thrombosis involving the greater saphenous vein with the thrombus extending slightly into the anterior lumen of the common femoral vein which otherwise is patent. 2. Superficial thrombophlebitis within the right popliteal fossa. 3. No deep venous thrombosis in the left lower extremity. PROCEDURE: US ABDOMEN ([id number]) IMPRESSION: 1. Liver demonstrates nodular contour and coarse echotexture consistent with chronic liver disease and possible cirrhosis. Recommend clinical correlation. 2. No gallstones or evidence for acute cholecystitis. 3. Small amount of free fluid around liver, spleen, and wheezing the gallbladder fossa. This finding is likely related to liver disease. Dictated by: Esthela Lamas M.D. on 08/30/2016 at 16:06 PROCEDURE: US DUPLEX DOPPLER BILATERAL LEG ARTERIES ([id number]) IMPRESSION: 1. Mild scattered plaque; no hemodynamically significant peripheral arterial stenosis. 2. Cardiac arrhythmia throughout the exam. Dictated by: Ducnan Cabrera [facility] Interpreted: Esthela Lamas MD on 08/31/2016 at 10:42 PROCEDURE: MRI BRAIN WITHOUT CONTRAST ([id number]) IMPRESSION: 1. Bilateral foci of restricted diffusion consistent with small infarcts in the right frontal and bilateral temporal lobes as well as possibly be in the right cerebellar hemisphere. Given the distribution and patient's clinical history, findings are compatible with small embolic infarcts. No evidence of associated hemorrhage. 2. Mild to moderate chronic white matter small vessel ischemic changes and mild cerebral volume loss. Dictated by: Michael Wing M.D. on 09/01/2016 at 11:00 . Cardiac Echo Impressions Echocardiogram Report Name: JORGE NOLEN Study Date: Interpretation Summary 1. Dilated left ventricle with normal wall thickness and globally reduced systolic function with an estimated EF of 15 to 20% 2. Dilated right ventricle with moderately reduced systolic function. The estimated right atrial pressure is elevated. 3. Severe tricuspid regurgitation. Severe mitral regurgitation. 4. 2x3 cm mobile mass seen at the base of the right atrium (clinical correlation recommended) . Assessment & Plan #. Multiple thromboemboli., POA. Thromboembolic CVA, multiple lesions which are small and low risk for hemorrhagic conversion. Bilateral pulmonary embolism. Right Atrial thrombus. Superficial leg vein thrombosis - Heparin drip discontinued, initiate therapeutic Lovenox - Initiate warfarin, pharmacy to manage. - He may be suitable for Lovenox bridging at home if his encephalopathy clears and his feels she can manage. #. Thromboembolic CVA, acute, multifocal. No focal neurological deficits. - Physical therapy consult - Anticoagulation #. Atrial fibrillation with rapid ventricular response. - IV diltiazem for rate control discontinued and transitioned to Toprol - Titrate upward metoprolol 4 times a day beta summer, then switch to tartrate - Digoxin load today then 0.25 mg daily - Cardiology consult is following - Continue telemetry #. Acute biventricular systolic heart failure, POA. Etiology is unclear. Likely alcoholic cardiomyopathy. No severe acute right heart strain. The patient has been counseled on need for alcohol cessation. - Discontinue IV normal saline now that his renal function is normal. - Initiate lisinopril, spironolactone when patient is clinically stable - Thiamine - Cardiology consult - CHF education when encephalopathy clears - Daily weights #. Encephalopathy, acute. Patient is normally able to work full-time. Current impairment seems likely related to alcohol, uremia, cerebral embolic disease. - Monitor for alcohol withdrawal - Monitor electrolytes, oxygenation and cardiac function - Continue therapeutic anticoagulation as embolic are small, low risk of bleeding #. Alcohol dependence, POA. - Follow for evidence of withdrawal, CIWA if needed. #. Acute renal failure, POA. Serum creatinine on admission 2.02. Fractional excretion 0.24% is consistent with CHF and cardiorenal syndrome. Abdominal ultrasound reveals normal kidneys with no nephrolithiasis. - Resolving - Continue oral fluids only #. Acute hepatitis, POA. Possibly alcohol induced, also hepatic congestion from pulmonary embolism and heart failure. No significant ascites, hence doubt SBP. ALT was 593, AST 42 and total bili 2.1 on admission. LFTs gradually improving over first 2 days of admission. - Follow clinically - Repeat CMP #. Poor pedal pulses, POA. Leg artery US in AM. Possible small vessel thromboembolic disease - Continue anticoagulation #. Elevated troponin - Flat profile does not suggest acute coronary syndrome Full code. Anticipate several days of inpatient care GI Prophylaxis: Not indicated VTE Prophylaxis: Sub-Q Heparin (Unfractionated), Other VTE Mechanical Devices: Intermittant Pneumatic CD Resuscitation Status: CPR: Attempt Resuscitation Time spent 40 minutes in patient assessment in care coordination including review of data with configuration management consultant Jonathon Dhillon MD Sep 02, 2016 15:31
--- NOTE | 2016-09-02 18:20 | NUR ---
Mentation Pt. is a little more alert today than yesterday and able to hold a conversation with me. Pt. sleeping most of shift and up for meals in bed. Pt. has had no signs or symptoms of alcohol withdrawal yet when he stands to ambulate Pts. equilibrium looks a little off as he leans to one side or the other. Pt. is a SBA.
[2016-09-03] VITALS (10 sets, daily range): BP systolic 90–113; BP diastolic 65–83; PULSE 61–110; RESP 16–24; O2SAT 93–99
[2016-09-03 03:25] LABS: BASOPHILS % (AUTO) 0.1 % (0-3); EOSINOPHILS % (AUTO) 1.7 % (0-5); MONOCYTES % (AUTO) 15.2 % (4-12); Mean Corpuscular Hemoglobin 30.2 pg (27.0-35.0); Mean Corpuscular Volume 94.3 fL (81-100); NEUTROPHILS % (AUTO) 72.6 % (40-74); Platelet Count 158 bil/L (150-400)
[2016-09-03 03:39] LABS: INR 1.2 ratio
[2016-09-03 03:42] LABS: Magnesium 2.1 mg/dL (1.6-2.6)
--- NOTE | 2016-09-03 06:47 | NUR ---
Activity/Tele Pt did not get out of bed this shift and slept throughout the night without s/sx of withdrawal. Denies shortness of breath, difficulty breathing, and pain. Tele: AFIB HR 109 per imaging technician. Care ongoing.
[2016-09-03] MEDS: Nystatin 100,000 Unit/Gm 15 Gm Powder TOPICAL SCH ×2 (07:55→21:14)
[2016-09-03] MEDS: Furosemide 10 mg/mL 4 mL Inj IVPUSH SCH (12:02)
--- NOTE | 2016-09-03 12:16 | PCM.PNMED ---
Subjective Date of Service Sep 03, 2016 Subjective No distress, no chest pain, or dyspnea. Ongoing edema. No abdomen pain. Exam Vital Signs Vital Sign - Last Date Time Temp Pulse Resp B/P Pulse Ox O2 Delivery O2 Flow Rate FiO2 09/03/16 12:02 106 09/03/16 11:58 37.0 18 113/83 Room Air 09/03/16 07:37 98 09/01/16 19:46 2.00 Intake and Output 09/02/16 09/02/16 09/03/16 Cumulative From/Thru 15:00 23:00 07:00 08/30/16 12:11 - 09/03/16 06:45 Intake Total 1737 ml 608 ml 94080 ml Output Total 700 ml 500 ml 3275 ml Balance 1037 ml 108 ml 64541 ml Intake Oral 760 ml 608 ml 4618 ml IV Total 977 ml 9363 ml Output Urine Total 700 ml 500 ml 3275 ml # Voids 4 # Bowel Movements 1 5 Exam General: Appears comfortable, no acute distress HEENT: sclerae anicteric, oral mucosa moist Neck: Supple, difficult to assess JVD Chest: clear to auscultation Cardiac: S1S2, irregular, no murmur Abdomen: BS normal, non-tender, no flank dullness Extremities: Toes slightly hyperemic. Capillary refill okay. Feet are warm.A fair amount of bilateral leg edema. Neuro: A&O, cranial nerves symmetric, PERRLA, few beats of nystagmus that extinguished with gaze, motor strength 5/5, reflexes 3+ bilaterally, no asterixis Slow speech. IVs and Medications Medications Reviewed: Medications were reviewed in detail Lab and Diagnostics Result Diagram: 09/03/16 0300 09/03/16 0300 X-Rays, CTs and MRIs PROCEDURE: CT ANGIO CHEST PULMONARY EMBOLISM ([id number]) IMPRESSION: 1. Bilateral nonocclusive subsegmental pulmonary emboli. 2. Small pleural effusions, cardiomegaly, and partially characterized hepatosplenic ascites. The findings suggest congestive failure and fluid overload. These findings were discussed with Dr. Meneses at 12:10 PM on 08/30/16. PROCEDURE: US VENOUS LEG DUPLEX BILATERAL IMPRESSION: 1. Although no deep venous thrombosis is identified in the right lower extremity , there is extensive dilatation and thrombosis involving the greater saphenous vein with the thrombus extending slightly into the anterior lumen of the common femoral vein which otherwise is patent. 2. Superficial thrombophlebitis within the right popliteal fossa. 3. No deep venous thrombosis in the left lower extremity. PROCEDURE: US ABDOMEN ([id number]) IMPRESSION: 1. Liver demonstrates nodular contour and coarse echotexture consistent with chronic liver disease and possible cirrhosis. Recommend clinical correlation. 2. No gallstones or evidence for acute cholecystitis. 3. Small amount of free fluid around liver, spleen, and wheezing the gallbladder fossa. This finding is likely related to liver disease. Dictated by: Esthela Lamas M.D. on 08/30/2016 at 16:06 PROCEDURE: US DUPLEX DOPPLER BILATERAL LEG ARTERIES ([id number]) IMPRESSION: 1. Mild scattered plaque; no hemodynamically significant peripheral arterial stenosis. 2. Cardiac arrhythmia throughout the exam. Dictated by: Duncan Cabrera [facility] Interpreted: Esthela Lamas MD on 08/31/2016 at 10:42 PROCEDURE: MRI BRAIN WITHOUT CONTRAST ([id number]) IMPRESSION: 1. Bilateral foci of restricted diffusion consistent with small infarcts in the right frontal and bilateral temporal lobes as well as possibly be in the right cerebellar hemisphere. Given the distribution and patient's clinical history, findings are compatible with small embolic infarcts. No evidence of associated hemorrhage. 2. Mild to moderate chronic white matter small vessel ischemic changes and mild cerebral volume loss. Dictated by: Michael Wing M.D. on 09/01/2016 at 11:00 . Cardiac Echo Impressions Echocardiogram Report Name: JORGE NOLEN Study Date: Interpretation Summary 1. Dilated left ventricle with normal wall thickness and globally reduced systolic function with an estimated EF of 15 to 20% 2. Dilated right ventricle with moderately reduced systolic function. The estimated right atrial pressure is elevated. 3. Severe tricuspid regurgitation. Severe mitral regurgitation. 4. 2x3 cm mobile mass seen at the base of the right atrium (clinical correlation recommended) . Assessment & Plan #. Multiple thromboemboli., POA. Thromboembolic CVA, multiple lesions which are small and low risk for hemorrhagic conversion. Bilateral pulmonary embolism. Right Atrial thrombus. Superficial leg vein thrombosis - Heparin drip discontinued, initiate therapeutic Lovenox - Initiate warfarin, pharmacy to manage. - He may be suitable for Lovenox bridging at home if his encephalopathy clears and his feels she can manage. No changes to plan. #. Thromboembolic CVA, acute, multifocal. No focal neurological deficits. - Physical therapy consult - Anticoagulation, as above. #. Atrial fibrillation with rapid ventricular response. - IV diltiazem for rate control discontinued and transitioned to Toprol - Titrate upward metoprolol 4 times a day beta summer, then switch to tartrate - Digoxin load today then 0.25 mg daily - Cardiology consult is following - Continue telemetry Discussed with cards. Rate control and anticoagulation. #. Acute biventricular systolic heart failure, POA. Etiology is unclear. Likely alcoholic cardiomyopathy. No severe acute right heart strain. The patient has been counseled on need for alcohol cessation. - Discontinue IV normal saline now that his renal function is normal. - Initiate lisinopril, spironolactone when patient is clinically stable - Thiamine - Cardiology consult - CHF education when encephalopathy clears - Daily weights #. Encephalopathy, acute. Patient is normally able to work full-time. Current impairment seems likely related to alcohol, uremia, cerebral embolic disease. - Monitor for alcohol withdrawal - Monitor electrolytes, oxygenation and cardiac function - Continue therapeutic anticoagulation as embolic are small, low risk of bleeding This is improving. #. Alcohol dependence, POA. -No withdrawal. #. Acute renal failure, POA. Resolved. #. Acute hepatitis, POA. Possibly alcohol induced, also hepatic congestion from pulmonary embolism and heart failure. No significant ascites, hence doubt SBP. ALT was 593, AST 42 and total bili 2.1 on admission. LFTs gradually improving over first 2 days of admission. - Follow clinically - Repeat CMP #. Poor pedal pulses, POA. Leg artery US in AM. Possible small vessel thromboembolic disease - Continue anticoagulation #. Elevated troponin - Flat profile does not suggest acute coronary syndrome Full code. Possible discharge Monday with lovenox bridge at home. Pain Evaluation: Adequate Pain Control GI Prophylaxis: Not indicated VTE Prophylaxis: Sub-Q Heparin (Unfractionated), Other VTE Mechanical Devices: Intermittant Pneumatic CD Resuscitation Status: CPR: Attempt Resuscitation Time spent 25 minutes Bobby Levi MD Sep 03, 2016 12:16
[2016-09-04] VITALS (9 sets, daily range): BP systolic 109–119; BP diastolic 72–83; PULSE 86–103; RESP 16–20; O2SAT 96–98
[2016-09-04 03:31] LABS: INR 1.47 ratio
[2016-09-04 03:37] LABS: Magnesium 1.9 mg/dL (1.6-2.6)
--- NOTE | 2016-09-04 07:33 | NUR ---
Tele/Mentation/Toe Tele Afib 100s-110s, up to 120s at times. Pt denied any pain or symptoms, given ordered Metoprolol. Pt A&Ox3, HENDERSON equally, noted to have forgetfulness and needs many reminders to understand plan of care. Right big toe noted to be very swollen and discolored. Pt denies any pain or loss of sensation. Day RN aware.
[2016-09-04] MEDS: Nystatin 100,000 Unit/Gm 15 Gm Powder TOPICAL SCH ×2 (08:09→20:45)
[2016-09-04] MEDS: Furosemide 10 mg/mL 4 mL Inj IVPUSH SCH (08:13)
--- NOTE | 2016-09-04 10:53 | PCM.PNMED ---
Subjective Date of Service Sep 04, 2016 Subjective Patient still very weak. No dyspnea or chest pain. No nausea or diarrhea. No abdomen pain. Right great toe hurts. Exam Vital Signs Vital Sign - Last Date Time Temp Pulse Resp B/P Pulse Ox O2 Delivery O2 Flow Rate FiO2 09/04/16 08:32 103 09/04/16 08:00 36.9 18 119/78 98 Room Air 09/01/16 19:46 2.00 Intake and Output 09/03/16 09/03/16 09/04/16 Cumulative From/Thru 15:00 23:00 07:00 08/30/16 12:11 - 09/04/16 06:43 Intake Total 1120 ml 854 ml 61475 ml Output Total 2575 ml 700 ml 6550 ml Balance -1455 ml 154 ml 9405 ml Intake Oral 1120 ml 854 ml 6592 ml IV Total 9363 ml Output Urine Total 2575 ml 700 ml 6550 ml # Voids 4 # Bowel Movements 1 6 Exam General: Appears comfortable, no acute distress HEENT: sclerae anicteric, oral mucosa moist Neck: Supple, difficult to assess JVD Chest: clear to auscultation Cardiac: S1S2, irregular, no murmur Abdomen: BS normal, non-tender, no flank dullness Extremities: Toes slightly hyperemic. Capillary refill okay. Feet are warm.A fair amount of bilateral leg edema. Neuro: A&O, cranial nerves symmetric, PERRLA, few beats of nystagmus that extinguished with gaze, motor strength 5/5, reflexes 3+ bilaterally, no asterixis Slow speech. Right great toe appears to have possibly suffered an embolism. Dusky with poor cap refill. IVs and Medications Medications Reviewed: Medications were reviewed in detail Lab and Diagnostics Result Diagram: 09/04/16 0305 09/04/16 0305 X-Rays, CTs and MRIs PROCEDURE: CT ANGIO CHEST PULMONARY EMBOLISM ([id number]) IMPRESSION: 1. Bilateral nonocclusive subsegmental pulmonary emboli. 2. Small pleural effusions, cardiomegaly, and partially characterized hepatosplenic ascites. The findings suggest congestive failure and fluid overload. These findings were discussed with Dr. Meneses at 12:10 PM on 08/30/16. PROCEDURE: US VENOUS LEG DUPLEX BILATERAL IMPRESSION: 1. Although no deep venous thrombosis is identified in the right lower extremity , there is extensive dilatation and thrombosis involving the greater saphenous vein with the thrombus extending slightly into the anterior lumen of the common femoral vein which otherwise is patent. 2. Superficial thrombophlebitis within the right popliteal fossa. 3. No deep venous thrombosis in the left lower extremity. PROCEDURE: US ABDOMEN ([id number]) IMPRESSION: 1. Liver demonstrates nodular contour and coarse echotexture consistent with chronic liver disease and possible cirrhosis. Recommend clinical correlation. 2. No gallstones or evidence for acute cholecystitis. 3. Small amount of free fluid around liver, spleen, and wheezing the gallbladder fossa. This finding is likely related to liver disease. Dictated by: Esthela Lamas M.D. on 08/30/2016 at 16:06 PROCEDURE: US DUPLEX DOPPLER BILATERAL LEG ARTERIES ([id number]) IMPRESSION: 1. Mild scattered plaque; no hemodynamically significant peripheral arterial stenosis. 2. Cardiac arrhythmia throughout the exam. Dictated by: Duncan Cabrera [facility] Interpreted: Esthela Lamas MD on 08/31/2016 at 10:42 PROCEDURE: MRI BRAIN WITHOUT CONTRAST ([id number]) IMPRESSION: 1. Bilateral foci of restricted diffusion consistent with small infarcts in the right frontal and bilateral temporal lobes as well as possibly be in the right cerebellar hemisphere. Given the distribution and patient's clinical history, findings are compatible with small embolic infarcts. No evidence of associated hemorrhage. 2. Mild to moderate chronic white matter small vessel ischemic changes and mild cerebral volume loss. Dictated by: Michael Wing M.D. on 09/01/2016 at 11:00 . Cardiac Echo Impressions Echocardiogram Report Name: JORGE NOLEN Study Date: Interpretation Summary 1. Dilated left ventricle with normal wall thickness and globally reduced systolic function with an estimated EF of 15 to 20% 2. Dilated right ventricle with moderately reduced systolic function. The estimated right atrial pressure is elevated. 3. Severe tricuspid regurgitation. Severe mitral regurgitation. 4. 2x3 cm mobile mass seen at the base of the right atrium (clinical correlation recommended) . Assessment & Plan #. Multiple pulmonary emboli., POA. - Heparin drip discontinued, initiate therapeutic Lovenox - Initiate warfarin, pharmacy to manage. - Continue Lovenox bridging at home if his encephalopathy clears and his feels she can manage. No changes to plan. #. Thromboembolic CVA, acute, multifocal. No focal neurological deficits. - Physical therapy consult - Anticoagulation, as above. #. Atrial fibrillation with rapid ventricular response.POA. Improved with rate control. - IV diltiazem for rate control discontinued and transitioned to Toprol - Titrate upward metoprolol 4 times a day beta summer, then switch to tartrate - Digoxin load today then 0.25 mg daily - Cardiology consult is following - Continue telemetry Discussed with cards. Rate control and anticoagulation. #. Acute on probable chronic biventricular systolic heart failure, POA. Etiology is unclear. Likely alcoholic cardiomyopathy. No severe acute right heart strain. The patient has been counseled on need for alcohol cessation. - Discontinue IV normal saline now that his renal function is normal. - Initiate lisinopril, spironolactone when patient is clinically stable - Thiamine - Cardiology consult - CHF education when encephalopathy clears - Daily weights #. Encephalopathy, acute. POA. Patient is normally able to work full-time. Current impairment seems likely related to alcohol, uremia, cerebral embolic disease. - Monitor for alcohol withdrawal - Monitor electrolytes, oxygenation and cardiac function - Continue therapeutic anticoagulation as embolic are small, low risk of bleeding This is improving. #. Alcohol dependence, POA. -No withdrawal. #. Acute renal failure, POA. Resolved. #. Acute hepatitis, POA. Possibly alcohol induced, also hepatic congestion from pulmonary embolism and heart failure. No significant ascites, hence doubt SBP. ALT was 593, AST 42 and total bili 2.1 on admission. LFTs gradually improving over first 2 days of admission. - Follow clinically - Repeat CMP #. Poor pedal pulses, POA. Also possible thromboembolism to right great toe. - Continue anticoagulation #. Elevated troponin, secondary to PE. POA. - Flat profile does not suggest acute coronary syndrome. No further work up Full code. Delay discharge and continue planning. Pain Evaluation: Adequate Pain Control GI Prophylaxis: Not indicated VTE Prophylaxis: Sub-Q Heparin (Unfractionated), Other VTE Mechanical Devices: Intermittant Pneumatic CD Resuscitation Status: CPR: Attempt Resuscitation Time spent 30 min Bobby Levi MD Sep 04, 2016 10:53
--- NOTE | 2016-09-04 14:12 | PCM.PHAPRO ---
Progress Date of Service: Sep 04, 2016 Warfarin dosing A/ INR is subtherapeutic at 1.47. P/ Give 7.5mg today and reevaluate dosing with AM labs tomorrow. Date Sep 02-Aug 03-Sep 04-Sep INR 1.24 1.23 1.2 1.47 INR change -0.01 -0.03 0.27 Warf Dose 5 mg 5 mg 7.5 mg 7.5 mg Marciano Cloud Sep 04, 2016 14:12
--- NOTE | 2016-09-04 16:06 | NUR ---
Social Work Note: Continued Discharge Planning Data& Assessment: Per MD in morning rounds, pt remains medically complex. SW met with pt and pt at bedside to discuss discharge planning, SW role explained. Pt has previously been declining PCP appointment, help with completing a Medicaid application with [facility] and also declined a financial assistance application. Pt is listed as self pay at this time. Pt and pt deny any needs at this time. Pt determined to discharge home via POV when medically ready. SW to continue to follow. Plan: Anticipated discharge home via POV when medically ready. SW to continue to follow. DELLA Humphries
[2016-09-05] VITALS (9 sets, daily range): BP systolic 101–128; BP diastolic 69–82; PULSE 56–107; RESP 18–22; O2SAT 92–97
[2016-09-05 04:18] LABS: BASOPHILS % (AUTO) 0.6 % (0-3); EOSINOPHILS % (AUTO) 2.2 % (0-5); MONOCYTES % (AUTO) 13.5 % (4-12); Mean Corpuscular Hemoglobin 30.1 pg (27.0-35.0); Mean Corpuscular Volume 93.6 fL (81-100); NEUTROPHILS % (AUTO) 68.3 % (40-74); Platelet Count 202 bil/L (150-400)
[2016-09-05 04:44] LABS: INR 2.17 ratio
--- NOTE | 2016-09-05 07:50 | NUR ---
Restful Night/Tele Pt appeared to intermittently sleep during the night, denied pain. Tele Afib 80s-110s. All vitals stable. Mascot alarm on for safety.
--- NOTE | 2016-09-05 09:31 | PCM.PNMED ---
Subjective Date of Service Sep 05, 2016 Subjective No distress. No dyspnea. No chest or abdomen pain. A little weak and confused. Exam Vital Signs Vital Sign - Last Date Time Temp Pulse Resp B/P Pulse Ox O2 Delivery O2 Flow Rate FiO2 09/05/16 08:50 99 09/05/16 03:23 36.7 18 115/82 95 Room Air 09/01/16 19:46 2.00 Intake and Output 09/04/16 09/04/16 09/05/16 Cumulative From/Thru 15:00 23:00 07:00 08/30/16 12:11 - 09/05/16 05:51 Intake Total 1080 ml 650 ml 79689 ml Output Total 3500 ml 950 ml 02673 ml Balance -2420 ml -300 ml 6685 ml Intake Oral 1080 ml 650 ml 8322 ml IV Total 9363 ml Output Urine Total 3500 ml 950 ml 69649 ml # Voids 4 # Bowel Movements 1 7 Exam General: Appears comfortable, no acute distress HEENT: sclerae anicteric, oral mucosa moist Neck: Supple, difficult to assess JVD Chest: clear to auscultation Cardiac: S1S2, irregular, no murmur Abdomen: BS normal, non-tender, no flank dullness Extremities: Toes slightly hyperemic. Capillary refill okay. Feet are warm.A fair amount of bilateral leg edema. Neuro: A&O, cranial nerves symmetric, PERRLA, few beats of nystagmus that extinguished with gaze, motor strength 5/5, reflexes 3+ bilaterally, no asterixis IVs and Medications Medications Reviewed: Medications were reviewed in detail Lab and Diagnostics Result Diagram: 09/05/16 0410 09/04/16 0305 X-Rays, CTs and MRIs PROCEDURE: CT ANGIO CHEST PULMONARY EMBOLISM ([id number]) IMPRESSION: 1. Bilateral nonocclusive subsegmental pulmonary emboli. 2. Small pleural effusions, cardiomegaly, and partially characterized hepatosplenic ascites. The findings suggest congestive failure and fluid overload. These findings were discussed with Dr. Meneses at 12:10 PM on 08/30/16. PROCEDURE: US VENOUS LEG DUPLEX BILATERAL IMPRESSION: 1. Although no deep venous thrombosis is identified in the right lower extremity , there is extensive dilatation and thrombosis involving the greater saphenous vein with the thrombus extending slightly into the anterior lumen of the common femoral vein which otherwise is patent. 2. Superficial thrombophlebitis within the right popliteal fossa. 3. No deep venous thrombosis in the left lower extremity. PROCEDURE: US ABDOMEN ([id number]) IMPRESSION: 1. Liver demonstrates nodular contour and coarse echotexture consistent with chronic liver disease and possible cirrhosis. Recommend clinical correlation. 2. No gallstones or evidence for acute cholecystitis. 3. Small amount of free fluid around liver, spleen, and wheezing the gallbladder fossa. This finding is likely related to liver disease. Dictated by: Esthela Lamas M.D. on 08/30/2016 at 16:06 PROCEDURE: US DUPLEX DOPPLER BILATERAL LEG ARTERIES ([id number]) IMPRESSION: 1. Mild scattered plaque; no hemodynamically significant peripheral arterial stenosis. 2. Cardiac arrhythmia throughout the exam. Dictated by: Duncan Cabrera [facility] Interpreted: Esthela Lamas MD on 08/31/2016 at 10:42 PROCEDURE: MRI BRAIN WITHOUT CONTRAST ([id number]) IMPRESSION: 1. Bilateral foci of restricted diffusion consistent with small infarcts in the right frontal and bilateral temporal lobes as well as possibly be in the right cerebellar hemisphere. Given the distribution and patient's clinical history, findings are compatible with small embolic infarcts. No evidence of associated hemorrhage. 2. Mild to moderate chronic white matter small vessel ischemic changes and mild cerebral volume loss. Dictated by: Michael Wing M.D. on 09/01/2016 at 11:00 . Cardiac Echo Impressions Echocardiogram Report Name: JORGE NOLEN Study Date: Interpretation Summary 1. Dilated left ventricle with normal wall thickness and globally reduced systolic function with an estimated EF of 15 to 20% 2. Dilated right ventricle with moderately reduced systolic function. The estimated right atrial pressure is elevated. 3. Severe tricuspid regurgitation. Severe mitral regurgitation. 4. 2x3 cm mobile mass seen at the base of the right atrium (clinical correlation recommended) . Assessment & Plan #. Multiple pulmonary emboli., POA. - Heparin drip discontinued, initiate therapeutic Lovenox - Initiate warfarin, pharmacy to manage. - Continue Lovenox through 09/06. INR 2.1 today. #. Thromboembolic CVA, acute, multifocal. No focal neurological deficits. - Physical therapy consult - Anticoagulation, as above. #. Atrial fibrillation with rapid ventricular response.POA. Improved with rate control. - IV diltiazem for rate control discontinued and transitioned to Toprol - Titrate upward metoprolol 4 times a day beta summer, then switch to tartrate - Digoxin load today then 0.25 mg daily - Cardiology consult is following - Continue telemetry Discussed with cards. Rate control and anticoagulation.No changes except stop digoxin. #. Acute on probable chronic biventricular systolic heart failure, POA. Etiology is unclear. Likely alcoholic cardiomyopathy. No severe acute right heart strain. The patient has been counseled on need for alcohol cessation. - Discontinue IV normal saline now that his renal function is normal. - Initiate lisinopril, spironolactone when patient is clinically stable - Thiamine - Cardiology consult - CHF education when encephalopathy clears - Daily weights Start lisinopril daily #. Encephalopathy, acute. POA. Improving. Patient is normally able to work full-time. Current impairment seems likely related to alcohol, uremia, cerebral embolic disease. - Monitor for alcohol withdrawal - Monitor electrolytes, oxygenation and cardiac function - Continue therapeutic anticoagulation as embolic are small, low risk of bleeding This is improving. #. Alcohol dependence, POA. -No withdrawal. #. Acute renal failure, POA. Resolved. #. Acute hepatitis, POA. Possibly alcohol induced, also hepatic congestion from pulmonary embolism and heart failure. No significant ascites, hence doubt SBP. ALT was 593, AST 42 and total bili 2.1 on admission. LFTs gradually improving over first 2 days of admission. - Follow clinically - Repeat CMP #. Poor pedal pulses, POA. Also possible thromboembolism to right great toe. - Continue anticoagulation #. Elevated troponin, secondary to PE. POA. - Flat profile does not suggest acute coronary syndrome. No further work up Full code. Delay discharge and continue planning. Will meet with this AM. Pain Evaluation: Adequate Pain Control GI Prophylaxis: Not indicated VTE Prophylaxis: Sub-Q Heparin (Unfractionated), Other VTE Mechanical Devices: Intermittant Pneumatic CD Resuscitation Status: CPR: Attempt Resuscitation Time spent 35 min Bobby Levi MD Sep 05, 2016 09:31
[2016-09-05] MEDS: Nystatin 100,000 Unit/Gm 15 Gm Powder TOPICAL SCH ×2 (10:19→21:06)
[2016-09-05] MEDS: Furosemide 10 mg/mL 4 mL Inj IVPUSH SCH (10:19)
--- NOTE | 2016-09-05 10:37 | PROG NOTE ---
[address] [address] PROGRESS NOTE PATIENT: JORGE NOLEN : 1955 MR#: [id number] ADMIT: 08/30/2016 JOB ID: [id number] DATE: 09/05/2016 CHIEF COMPLAINT: The patient came in with cardiomyopathy, pulmonary embolism, as well as a stroke likely embolic possibly related to atrial fibrillation. He is doing quite well despite all these issues. CURRENT MEDICATIONS: Include: 1. Metoprolol 50 q.i.d. 2. Enoxaparin 100 q.12. 3. Famotidine digoxin 0.25 daily. 4. Thiamine furosemide 40 IV push daily. 5. Warfarin. PHYSICAL EXAMINATION: Current vital signs show blood pressure 116/82, heart rate 83, sats are 95% on room air. He is in no acute distress. LABORATORIES: Today show a white count 6.8, HCT 42.6, platelets of 202,000. Chemistry shows sodium 140, potassium 0.3, chloride and bicarb 108 and 19 respectively. BUN and creatinine 25 and 1.13. I's and O's show him to be negative. IMPRESSION: The patient has multiple issues at this time cardiomyopathy, pulmonary embolism, as well as stroke and atrial fibrillation. PLAN: 1. I would continue with metoprolol. 2. Continue with anticoagulation for both atrial fibrillation and pulmonary embolism. 3. I would add an DEBBIE inhibitor to his regimen as he has a cardiomyopathy. 4. I would opt to hold to stop digoxin on this patient given risks of toxicities with this medication and very narrow therapeutic window. MTDD
--- NOTE | 2016-09-05 14:34 | NUR ---
Evaluation completed. Please go to "Notes" then click on "Assessments and Notes" (bottom left corner of screen). Then select appropriate discipline tab on top of screen.
--- NOTE | 2016-09-05 18:53 | NUR ---
Florian Discontinued His Florian was discontinued per MD orders at 1045. He was able to urinate. Post void residual showed about 200 mls of retention. Will continue to monitor and encourage urination. Care continues.
[2016-09-06] VITALS (9 sets, daily range): BP systolic 101–119; BP diastolic 47–88; PULSE 79–112; RESP 17–22; O2SAT 92–97
[2016-09-06 05:19] LABS: INR 2.15 ratio
--- NOTE | 2016-09-06 06:22 | NUR ---
HR with activity pts HR up to 150s dose come back down with rest but any activity. 50mg PO lopressor q8 hours given Addendum: 09/06/16 at 0651 by OSIEL DALLAS RN correction lopressor is QID not q8
[2016-09-06] MEDS: Furosemide 10 mg/mL 4 mL Inj IVPUSH SCH (08:20)
[2016-09-06] MEDS: Nystatin 100,000 Unit/Gm 15 Gm Powder TOPICAL SCH ×2 (08:20→22:03)
--- NOTE | 2016-09-06 09:00 | NUR ---
Social Work Note: Readiness for Discharge Data& Assessment: Per MD pt is getting closer to being medically ready to discharge. PT is recommending outpt PT after discharge. SW provided pt with [facility] phone number to get screened for Medicaid, a financial assistance application, and [employer] contact information for help enrolling in insurance. Pt and pt deny any other needs at this time. SW to continue to follow if any needs arise. Plan: Anticipated discharge home via POV when medically ready. Financial and insurance resources provided. Pt and pt deny any other needs at this time. SW to continue to follow if any needs arise. DELLA Humphries
--- NOTE | 2016-09-06 13:18 | PCM.PNMED ---
Subjective Date of Service Sep 06, 2016 Subjective Feeling a little stronger. No chest pain, some wheezing last night. No nausea or vomiting. No abdomen pain, dysuria or diarrhea. Some gait instability. Exam Vital Signs Vital Sign - Last Date Time Temp Pulse Resp B/P Pulse Ox O2 Delivery O2 Flow Rate FiO2 09/06/16 12:48 37.0 79 18 101/72 92 Room Air 09/06/16 04:00 2.00 Intake and Output 09/05/16 09/05/16 09/06/16 Cumulative From/Thru 15:00 23:00 07:00 08/30/16 12:11 - 09/06/16 06:24 Intake Total 480 ml 240 ml 58899 ml Output Total 750 ml 86919 ml Balance -270 ml 240 ml 6655 ml Intake Oral 480 ml 240 ml 9042 ml IV Total 9363 ml Output Urine Total 750 ml 33689 ml # Voids 3 7 # Bowel Movements 1 8 Exam General: Appears comfortable, no acute distress HEENT: sclerae anicteric, oral mucosa moist Neck: Supple, difficult to assess JVD Chest: clear to auscultation Cardiac: S1S2, irregular, no murmur Abdomen: BS normal, non-tender, no flank dullness Extremities: Toes slightly hyperemic. Capillary refill okay. Feet are warm.A fair amount of bilateral leg edema. Neuro: A&O, cranial nerves symmetric, PERRLA, few beats of nystagmus that extinguished with gaze, motor strength 5/5, reflexes 3+ bilaterally, no asterixis Probable emboli to right great tie and left foot 3 and 4 toes with some focal cyanosis IVs and Medications Medications Reviewed: Medications were reviewed in detail Lab and Diagnostics Result Diagram: 09/06/16 0420 09/04/16 0305 X-Rays, CTs and MRIs PROCEDURE: CT ANGIO CHEST PULMONARY EMBOLISM ([id number]) IMPRESSION: 1. Bilateral nonocclusive subsegmental pulmonary emboli. 2. Small pleural effusions, cardiomegaly, and partially characterized hepatosplenic ascites. The findings suggest congestive failure and fluid overload. These findings were discussed with Dr. Meneses at 12:10 PM on 08/30/16. PROCEDURE: US VENOUS LEG DUPLEX BILATERAL IMPRESSION: 1. Although no deep venous thrombosis is identified in the right lower extremity , there is extensive dilatation and thrombosis involving the greater saphenous vein with the thrombus extending slightly into the anterior lumen of the common femoral vein which otherwise is patent. 2. Superficial thrombophlebitis within the right popliteal fossa. 3. No deep venous thrombosis in the left lower extremity. PROCEDURE: US ABDOMEN ([id number]) IMPRESSION: 1. Liver demonstrates nodular contour and coarse echotexture consistent with chronic liver disease and possible cirrhosis. Recommend clinical correlation. 2. No gallstones or evidence for acute cholecystitis. 3. Small amount of free fluid around liver, spleen, and wheezing the gallbladder fossa. This finding is likely related to liver disease. Dictated by: Esthela Lamas M.D. on 08/30/2016 at 16:06 PROCEDURE: US DUPLEX DOPPLER BILATERAL LEG ARTERIES ([id number]) IMPRESSION: 1. Mild scattered plaque; no hemodynamically significant peripheral arterial stenosis. 2. Cardiac arrhythmia throughout the exam. Dictated by: Duncan Cabrera RRA Interpreted: Esthela Lamas MD on 08/31/2016 at 10:42 PROCEDURE: MRI BRAIN WITHOUT CONTRAST ([id number]) IMPRESSION: 1. Bilateral foci of restricted diffusion consistent with small infarcts in the right frontal and bilateral temporal lobes as well as possibly be in the right cerebellar hemisphere. Given the distribution and patient's clinical history, findings are compatible with small embolic infarcts. No evidence of associated hemorrhage. 2. Mild to moderate chronic white matter small vessel ischemic changes and mild cerebral volume loss. Dictated by: Michael Wing M.D. on 09/01/2016 at 11:00 . Cardiac Echo Impressions Echocardiogram Report Name: JORGE NOLEN Study Date: Interpretation Summary 1. Dilated left ventricle with normal wall thickness and globally reduced systolic function with an estimated EF of 15 to 20% 2. Dilated right ventricle with moderately reduced systolic function. The estimated right atrial pressure is elevated. 3. Severe tricuspid regurgitation. Severe mitral regurgitation. 4. 2x3 cm mobile mass seen at the base of the right atrium (clinical correlation recommended) . Assessment & Plan #. Multiple pulmonary emboli., POA. - Heparin drip discontinued, initiate therapeutic Lovenox - Initiate warfarin, pharmacy to manage. - Discontinue Lovenox, continue coumadin #. Thromboembolic CVA, acute, multifocal. No focal neurological deficits. - Physical therapy consult - Anticoagulation, as above. #. Atrial fibrillation with rapid ventricular response.POA. Improved with rate control. -Continue metoprolol and coumadin #. Acute on probable chronic biventricular systolic heart failure, POA. Etiology is unclear. Likely alcoholic cardiomyopathy. No severe acute right heart strain. The patient has been counseled on need for alcohol cessation. - Discontinue IV normal saline now that his renal function is normal. - Initiate lisinopril, spironolactone when patient is clinically stable - Thiamine - Cardiology consult - CHF education when encephalopathy clears - Daily weights Euvolemic. Add lisinopril low dose, #. Encephalopathy, acute. POA. Improving. Patient is normally able to work full-time. Current impairment seems likely related to alcohol, uremia, cerebral embolic disease. - Monitor for alcohol withdrawal - Monitor electrolytes, oxygenation and cardiac function - Continue therapeutic anticoagulation as embolic are small, low risk of bleeding This is improving. #. Alcohol dependence, POA. -No withdrawal. , advised to not drink alcohol. #. Acute renal failure, POA. Resolved. #. Acute hepatitis, POA. Possibly alcohol induced, also hepatic congestion from pulmonary embolism and heart failure. No significant ascites, hence doubt SBP. ALT was 593, AST 42 and total bili 2.1 on admission. LFTs gradually improving over first 2 days of admission. - Follow clinically - Repeat CMP #. Poor pedal pulses, POA. Also possible thromboembolism to right great toe. - Continue anticoagulation. Normal arterial duplex of both legs. #. Elevated troponin, secondary to PE. POA. - Flat profile does not suggest acute coronary syndrome. No further work up Full code. will take him home Monday, needs OP PT. She wants cardiology FU in [place]. Pain Evaluation: Adequate Pain Control GI Prophylaxis: Not indicated VTE Prophylaxis: Sub-Q Heparin (Unfractionated), Other VTE Mechanical Devices: Intermittant Pneumatic CD Resuscitation Status: CPR: Attempt Resuscitation Time spent 30 min Bobby Levi MD Sep 06, 2016 13:18
--- NOTE | 2016-09-06 16:27 | NUR ---
Activity He was assisted in taking a shower today and has been up several times to and from the bathroom. [place] alarm kept on him due to confusion and impulsiveness. Care continues.
[2016-09-07] VITALS (7 sets, daily range): BP systolic 109–132; BP diastolic 68–99; PULSE 60–121; RESP 16–18; O2SAT 93–97
--- NOTE | 2016-09-07 07:45 | NUR ---
Restful Night/Tele Pt slept intermittently throughout shift w/out c/o pain. Pt compliant with care but rosi kept on d/t impulsiveness and forgetfulness. Tele Afib w/ rate stable 80s-110s.
[2016-09-07] MEDS: Furosemide 10 mg/mL 4 mL Inj IVPUSH SCH (09:59)
[2016-09-07] MEDS: Nystatin 100,000 Unit/Gm 15 Gm Powder TOPICAL SCH (09:59)
[2016-09-07 10:32] LABS: INR 2.23 ratio
[2016-09-07] MEDS ORDERED: DIGO250T72 PO (14:11)
[2016-09-07] MEDS ORDERED: LISI-571 PO (14:11)
[2016-09-07] MEDS ORDERED: METO50TA3 PO (14:11)
[2016-09-07] MEDS ORDERED: WARF3TAB7 PO (14:11)
--- NOTE | 2016-09-07 14:14 | PCM.DIMED ---
Discharge Instructions Date of Service Sep 07, 2016 Dates of Hospitalization Aug 30, 2016 at 15:49 Discharge Diagnosis Discharge Diagnosis Multifocal cerebral infarct A. fib with RVR Congestive heart failure Acute renal failure-resolved Pulmonary emboli Diet Heart Healthy Activity Limited until seen by PCP Call your provider Fever or Chills, Shortness of breath, Bleeding, Chest pain, Weakness (unilateral ) Patient Instructions Follow-up plan Follow-up with cardiology at next available appointment. Follow-up with PCP within one week. Next INR check 09/09/2016. Outpatient physical therapy Follow-up with PCP in: 1 week CHF Clinic: 1 week Eladio Finch DO Sep 07, 2016 14:14
--- NOTE | 2016-09-07 14:19 | PCM.PHAPRO ---
Progress Warfarin dosing Indication: PE Home dose NA Dosing Hx: (day) 1 2 3 4 5 6 7 8 9 10 [facility] [place] Date Sep 02-Aug 03-Sep 2-Sep 3-Sep 4-Sep 5-Sep 6-Sep 7-Sep 8-Sep 9-Sep 10-Sep INR 1.24 1.23 1.2 1.47 2.17 2.15 2.23 INR change -0.01 -0.03 0.27 0.7 -0.02 0.08 Warf Dose 5 5 7.5 7.5 1 5 5 a/ Five mg likely home dose. p/ Continue 5mg/d and follow [place] S Pharm D Sep 07, 2016 14:19
--- NOTE | 2016-09-07 14:46 | NUR ---
Scheduled hospital follow up appointment for September check in at 315 for 330 PM appointment with Updated INSURANCE CUSTOMER SERVICE SPECIALIST
--- NOTE | 2016-09-07 17:58 | PCM.DC.MED ---
Discharge Summary Date of Service Sep 07, 2016 Dates of Hospitalization Date of Hospital Admission Aug 30, 2016 at 15:49 Date of Discharge: Sep 07, 2016 Providers: Admitting Physician: Bobby Levi MD Primary Care Physician: Nopro[place] Attending Physician: Bobby Levi MD Diagnosis at Time of Discharge Diagnosis at Time of Discharge Multifocal cerebral infarct A. fib with RVR Congestive heart failure Acute renal failure-resolved Pulmonary emboli Consultations Cardiology Procedures XRay, CTs & MRIs PROCEDURE: CT ANGIO CHEST PULMONARY EMBOLISM ([id number]) IMPRESSION: 1. Bilateral nonocclusive subsegmental pulmonary emboli. 2. Small pleural effusions, cardiomegaly, and partially characterized hepatosplenic ascites. The findings suggest congestive failure and fluid overload. These findings were discussed with Dr. Meneses at 12:10 PM on 08/30/16. PROCEDURE: US VENOUS LEG DUPLEX BILATERAL IMPRESSION: 1. Although no deep venous thrombosis is identified in the right lower extremity , there is extensive dilatation and thrombosis involving the greater saphenous vein with the thrombus extending slightly into the anterior lumen of the common femoral vein which otherwise is patent. 2. Superficial thrombophlebitis within the right popliteal fossa. 3. No deep venous thrombosis in the left lower extremity. PROCEDURE: US ABDOMEN ([id number]) IMPRESSION: 1. Liver demonstrates nodular contour and coarse echotexture consistent with chronic liver disease and possible cirrhosis. Recommend clinical correlation. 2. No gallstones or evidence for acute cholecystitis. 3. Small amount of free fluid around liver, spleen, and wheezing the gallbladder fossa. This finding is likely related to liver disease. Dictated by: Esthela Lamas M.D. on 08/30/2016 at 16:06 PROCEDURE: US DUPLEX DOPPLER BILATERAL LEG ARTERIES ([id number]) IMPRESSION: 1. Mild scattered plaque; no hemodynamically significant peripheral arterial stenosis. 2. Cardiac arrhythmia throughout the exam. Dictated by: Duncan Cabrera RR Interpreted: Esthela Lamas MD on 08/31/2016 at 10:42 PROCEDURE: MRI BRAIN WITHOUT CONTRAST ([id number]) IMPRESSION: 1. Bilateral foci of restricted diffusion consistent with small infarcts in the right frontal and bilateral temporal lobes as well as possibly be in the right cerebellar hemisphere. Given the distribution and patient's clinical history, findings are compatible with small embolic infarcts. No evidence of associated hemorrhage. 2. Mild to moderate chronic white matter small vessel ischemic changes and mild cerebral volume loss. Dictated by: Michael Wing M.D. on 09/01/2016 at 11:00 . Cardiac Echo Impression Echocardiogram Report Name: JORGE NOLEN Study Date: Interpretation Summary 1. Dilated left ventricle with normal wall thickness and globally reduced systolic function with an estimated EF of 15 to 20% 2. Dilated right ventricle with moderately reduced systolic function. The estimated right atrial pressure is elevated. 3. Severe tricuspid regurgitation. Severe mitral regurgitation. 4. 2x3 cm mobile mass seen at the base of the right atrium (clinical correlation recommended) . Brief History 61 year old male with several days of weakness and dyspnea. He is a chronic drinker and states he has about 5 beers a day. He stopped drinking about a week ago because he felt ill. He is very vague. He denies cough, fevers or chills. He has new leg swelling bilaterally No pleuritic CP or hemoptysis. In the ED he is found to have Bilateral PE and elevated LFT's. A stat ECHO reveals biventricular severe systolic heart failure and valve regurgitation. He denies a H/O ETOH withdrawals and has not had any problems like that since stopping drinking. He is also in AF with RVR refractory to a diltiazem drip after several diltiazem boluses. One dose of digoxin was given in the ED. He has not seen a doctor in years. He has not seen a doctor in years. He is generally very weak. He denies feveras of chills. No recent cough or rhinorrhea. He denies any history of racing heart, orthopnea, or leg edema. Hospital Course #. Multiple pulmonary emboli., POA. - Heparin drip initiated then switched to Lovenox for bridging therapy until he was therapeutic at discharge. -Started on Coumadin, discussed diet and frequent INR checks with the patient prior to discharge.. - Received 5 days of bridging therapy, 2 days therapeutic INR. #. Thromboembolic CVA, acute, multifocal. No focal neurological deficits. - Physical therapy consult - Anticoagulation, as above. - Aspirin held initially due to thrombocytopenia and initiation of anticoagulation. Consider starting outpatient. #. Atrial fibrillation with rapid ventricular response.POA. Improved with rate control. -Continue metoprolol and coumadin #. Acute on probable chronic biventricular systolic heart failure, POA. Etiology is unclear. Likely alcoholic cardiomyopathy. No severe acute right heart strain. The patient has been counseled on need for alcohol cessation. - Discontinue IV normal saline now that his renal function is normal. - Initiate spironolactone when patient is clinically stable -Started on lisinopril at discharge, he is also on metoprolol -He will need follow-up with cardiology as an outpatient. #. Encephalopathy, acute. POA. Improving. Patient is normally able to work full-time. Current impairment seems likely related to alcohol, uremia, cerebral embolic disease. -No significant alcohol withdrawal issues through his hospital stay. - Monitor electrolytes, oxygenation and cardiac function - Continue therapeutic anticoagulation as embolic are small, low risk of bleeding This is improving. #. Alcohol dependence, POA. -No withdrawal. , advised to not drink alcohol. #. Acute renal failure, POA. Resolved. #. Acute hepatitis, POA. Possibly alcohol induced, also hepatic congestion from pulmonary embolism and heart failure. No significant ascites, hence doubt SBP. ALT was 593, AST 42 and total bili 2.1 on admission. LFTs gradually improving over first 2 days of admission. Follow as an outpatient, consider statin therapy #. Poor pedal pulses, POA. Also possible thromboembolism to right great toe. - Continue anticoagulation. Normal arterial duplex of both legs. #. Elevated troponin, secondary to PE. POA. - Flat profile does not suggest acute coronary syndrome. No further work up Discharged home in stable condition, he will need to follow-up with cardiology at next available appointment. Next INR check 09/09/2016, set up with outpatient physical therapy. Will need further medication optimization as outpatient. He needs to follow-up with his PCP within one week, sooner if his condition worsens in anyway. Exam Vital Signs (Last) Date Time Temp Pulse Resp B/P Pulse Ox O2 Delivery O2 Flow Rate FiO2 09/07/16 14:14 121 09/07/16 12:20 36.5 16 109/68 93 Room Air 09/06/16 04:00 2.00 Test 08/30/16 12:42 08/31/16 05:50 09/01/16 03:30 09/01/16 05:30 Hematology Comments D-Dimer 13.9mg/L (<0.50) Hold Urine Received (Received) Thyroid Stimulating Hormone (TSH) 4.100uIU/mL (0.450-4.500) Hold Queen Top Tube Received (Received) Alcohols < 10mg/dL (0-10) Troponin T 0.074ug/L (0.0-0.011) Ammonia 33ug/dL (18-53) Methylmalonic Acid 180nmol/L (0-378) Rapid Plasma Reagin Non reactive (Non Reactive) Urine Color Yellow (YELLOW) Urine Appearance Hazy (CLEAR,HAZY) Urine pH 5.5 (5.0-8.0) Urine Specific [place] 1.020 (1.003-1.035) Urine Protein Tracemg/dL (NEG,TRACE) Urine Glucose (UA) Negativemg/dL (NEGATIVE) Urine Ketones 15mg/dL (NEGATIVE) Urine Occult Blood Large (NEGATIVE) Urine Nitrite Negative (NEGATIVE) Urine Bilirubin Negative (NEGATIVE) Urine Urobilinogen Normalmg/dL (NORMAL) Urine Leukocyte Esterase Small (NEGATIVE) Urine RBC 3-10/hpf (0-2) Urine WBC 6-10/hpf (0-5) Urine Epithelial Cells Occasional/hpf (NONE-MOD) Urine Crystals Amorphous urates (NONE Urine Bacteria Few/hpf (NONE-FEW) Urine Hyaline Casts None/lpf (NONE) Urine Granular Casts None seen (NONE SEEN) Urine Waxy Casts None seen (NONE SEEN) Urine Red Blood Cell Casts None seen (NONE SEEN) Urine White Blood Cell Casts None seen (NONE SEEN) Urine Mucus None seen (None Seen) Urine Trichomonas None seen (NONE SEEN) Urine Yeast None (NONE SEEN) Urinalysis Comment None Urine Culture Reflexed Indicated Test 09/01/16 05:45 09/02/16 03:40 09/03/16 03:00 09/04/16 03:05 Urine Random Creatinine 84mg/dL (22-328) Urine Random Sodium 15mEq/L Total Bilirubin 1.3mg/dL (0.0-1.2) Aspartate Amino Transf (AST/SGOT) 114U/L (0-50) Alanine Aminotransferase (ALT/SGPT) 314U/L (0-44) Alkaline Phosphatase 113U/L (25-160) Total Protein 5.0g/dL (6.4-8.4) Albumin 2.6g/dL (3.4-5.0) Activated Partial Thromboplast Time 40.3sec (22.8-33.0) Sodium Level 140mEq/L (134-144) Potassium Level 4.3mEq/L (3.5-5.2) Chloride Level 108mEq/L (97-108) Carbon Dioxide Level 19mmol/L (18-29) Blood Urea Nitrogen 25mg/dL (8-27) Creatinine 1.13mg/dL (0.76-1.27) Estimat Glomerular Filtration Rate 70mL/min (>59) Glucose Level 113mg/dL (60-99) Calcium Level 8.0mg/dL (8.5-10.1) Magnesium Level 1.9mg/dL (1.6-2.6) Test 09/05/16 04:10 09/06/16 04:20 09/07/16 10:00 White Blood Count 6.8th/mm3 (3.8-10.1) Red Blood Count 4.55mil/mm3 (4.40-5.80) Mean Corpuscular Volume 93.6fL (81-100) Mean Corpuscular Hemoglobin 30.1pg (27.0-35.0) Mean Corpuscular Hemoglobin Concent 32.2% (32.0-37.0) Red Cell Distribution Width 14.5% (12.3-15.4) Platelet Count 202bil/L (150-400) Neutrophils (%) (Auto) 68.3% (40-74) Lymphocytes (%) (Auto) 15.1% (14-46) Monocytes (%) (Auto) 13.5% (4-12) Eosinophils (%) (Auto) 2.2% (0-5) Basophils (%) (Auto) 0.6% (0-3) Hemoglobin 13.6g/dL (13.8-17.2) Hematocrit 42.4% (41.0-50.0) Prothrombin Time 24.2sec (8.1-12.5) Prothromb Time International Ratio 2.23ratio Discharge Medications Discharge Medications Digoxin (Digoxin) 250 Mcg Tablet 0.125 MG PO DAILY@12 Prescribed by: MARSHA FINCH DO Lisinopril (Lisinopril) 5 Mg Tablet 5 MG PO DAILY Prescribed by: MARSHA FINCH DO Metoprolol Tartrate (Metoprolol Tartrate) 50 Mg Tablet 100 MG PO BID Prescribed by: MARSHA FINCH DO Warfarin Sodium (Warfarin Sodium) 3 Mg Tablet 6 MG PO DAILY Prescribed by: MARSHA FINHC DO Disch Med Contraindications Anti-thrombotic Meds: Blood Coagulation Disorder Anticoagulation Meds: Warfarin theapy initiated Statins Meds: Hepatic failure, Inflam liver disease Followup Plan Follow-up plan Follow-up with cardiology at next available appointment. Follow-up with PCP within one week. Next INR check 09/09/2016. Outpatient physical therapy Discharge Diet: Heart Healthy Discharge Activity: Limited until seen by PCP Follow-up with PCP in: 1 week CHF Clinic: 1 week Time spent 40 minutes Marsha Finch DO Sep 07, 2016 17:58
--- NOTE | 2016-09-07 19:49 | NUR ---
Discharge It was planned that he would discharge today. His came in this morning and was waiting to take him home. By early afternoon, Dr. Finch had not written the discharge orders yet and the and patient were eager to leave. Was unable to find Dr. Finch and so a note was left at his desk asking for discharge orders when possible. Discharge orders were written and he was able to discharge at 1550. Prior to discharge both IVs in his left arm were discontinued intact along with his telemetry. The paperwork was discussed with and given to the as he was confused. She signed for him. Discharge paperwork given: prescriptions, MD/nurse instructions/appointments, care notes. He was wheeled out to the car by this nurse where he was assisted into the front passenger seat and encouraged to put his seat belt on. He and his thanked this nurse for the care he received.
== END 2016-09-07 15:46 | disposition home or self-care (01) | DRG 134 ==
LOC: SED 12:07 → PCC 15:49
PROVIDERS: ADMIT Hospitalist; ATTEND Hospitalist
DX: I26.99 Other pulmonary embolism without acute cor pulmonale (principal); G93.40 Encephalopathy, unspecified; I63.9 Cerebral infarction, unspecified; I50.21 Acute systolic (congestive) heart failure; N17.9 Acute kidney failure, unspecified; I82.811 Embolism and thrombosis of superficial veins of right lower extremity; I42.6 Alcoholic cardiomyopathy; I48.91 Unspecified atrial fibrillation; I51.3 Intracardiac thrombosis, not elsewhere classified; F10.20 Alcohol dependence, uncomplicated; K70.10 Alcoholic hepatitis without ascites; I34.0 Nonrheumatic mitral (valve) insufficiency